=== PATIENT | male | born 1960 | race Caucasian/White ===

== ENCOUNTER 2018-03-04 15:45 | Inpatient (IN) | payer MEDICAID ==
[~2018-03-04] VITALS: Ht 172.7 cm; Wt 102.5 kg
[2018-03-04] MEDS ORDERED: Albuterol/Ipratropium 3ml neb HHN ONE (16:00)
[2018-03-04] MEDS ORDERED: DOCUSATE SODIU100 M2 ORAL (16:09)
[2018-03-04] MEDS ORDERED: QVAR7.3 GM INH (16:09)
[2018-03-04] MEDS ORDERED: MOM30 ML ORAL (16:09)
[2018-03-04] MEDS ORDERED: VITAMIN C500 M1 ORAL (16:09)
[2018-03-04] MEDS ORDERED: ALUM-MAG HYDRO360 ML PO (16:09)
[2018-03-04] MEDS ORDERED: ASPIRIN81 M3 PO (16:09)
[2018-03-04] MEDS ORDERED: KLONOPIN1 MG ORAL (16:09)
[2018-03-04] MEDS ORDERED: ALBUTEROL2.5 MG/3 M INH (16:09)
[2018-03-04] MEDS ORDERED: FOLIC ACID1 M1 PO (16:09)
[2018-03-04] MEDS ORDERED: MULTIVITAMINS1 EAC8 ORAL (16:09)
[2018-03-04] MEDS ORDERED: TYLENOL EXTRA500 MG ORAL (16:09)
[2018-03-04] MEDS ORDERED: CRANBERRY450 M3 PO (16:09)
[2018-03-04] MEDS ORDERED: LEVETIRACETAM500 MG ORAL (16:09)
[2018-03-04] MEDS ORDERED: [UNRECOGNIZED DRUG - OTHER] (16:09)
[2018-03-04] MEDS ORDERED: BISACODYL10 M1 RC (16:09)
[2018-03-04] MEDS ORDERED: Solu-MEDROL 125mg Inj IVP ONE (16:15)
--- NOTE | 2018-03-04 16:43 | Diagnostic Imaging Report ---
EXAM: XR Chest, 1 View CLINICAL HISTORY: SOB TECHNIQUE: Frontal view of the chest. COMPARISON: No relevant prior studies available. FINDINGS: Limitations: Limited due to hypoventilation. Lungs: Possible mild pulmonary vascular congestion, versus hypoventilation. No definite focal consolidation. Pleural space: Unremarkable. No pneumothorax. Heart: Unremarkable. No cardiomegaly. Mediastinum: Unremarkable. Bones/joints: Unremarkable. IMPRESSION: 1. Limited due to hypoventilation. 2. Possible mild pulmonary vascular congestion, versus hypoventilation. No definite focal consolidation.
[2018-03-04 17:00] VITALS: BP 119/79
[2018-03-04 17:24] LABS: APPEARANCE,URINE SLIGHTLY CLOUDY; BILIRUBIN, URINE NEGATIVE (NEGATIVE); COLOR,URINE PALE YELLOW; GLUCOSE, URINE (UA) NEGATIVE (NEGATIVE); KETONES,URINE NEGATIVE (NEGATIVE); LEUKOCYTE ESTERASE ,URINE 2+ (NEGATIVE); NITRITE,URINE POSITIVE (NEGATIVE); PH,URINE 6 (4.5-8.0); PROTEIN,URINE 2+ (NEGATIVE); UROBILINOGEN,URINE NORMAL MG/DL (0.0-1.0)
[2018-03-04 17:27] LABS: HEMATOCRIT 48.7 % (42.0-52.0); MEAN CORPUSCULAR VOLUME 85 FL (80-99); PLATELET COUNT 252 K/UL (150-450); RED BLOOD COUNT 5.71 M/UL (4.70-6.10); RED CELL DISTRIBUTION WIDTH 11.4 % (11.6-14.8); WHITE BLOOD COUNT 15.9 K/UL (4.8-10.8)
[2018-03-04 17:50] LABS: ANION GAP 10 mmol/L (5-15); BLOOD UREA NITROGEN 11 mg/dL (7-18); CALCIUM 9.1 MG/DL (8.5-10.1); CARBON DIOXIDE 24 MMOL/L (21-32); CHLORIDE 102 MMOL/L (98-107); CREATININE 0.9 MG/DL (0.55-1.30); POTASSIUM 3.4 MMOL/L (3.5-5.1); SODIUM 136 MMOL/L (136-145)
[2018-03-04 18:03] LABS: ALANINE AMINOTRANSFERASE 25 U/L (12-78); ALBUMIN 3.7 G/DL (3.4-5.0); ALBUMIN/GLOBULIN RATIO 0.9 (1.0-2.7); ALKALINE PHOSPHATASE 108 U/L (46-116); ASPARTATE AMINO TRANSFERASE 23 U/L (15-37); BILIRUBIN,TOTAL 1.1 MG/DL (0.2-1.0); CKMB 1.7 NG/ML (0.0-3.6); CREATINE KINASE 139 U/L (26-308)
[2018-03-04 18:08] LABS: BILIRUBIN,DIRECT 0.2 MG/DL (0.0-0.3)
[2018-03-04] MEDS ORDERED: Ampicillin/Sulbactam Sod 3 GM in NS 110 ML IVPB ONE (18:30)
[2018-03-04 19:00] VITALS: BP 122/80
[2018-03-04 19:35] VITALS: BP 123/84
--- NOTE | 2018-03-04 19:52 | Emergency Room Report ---
History of Present Illness General Chief Complaint: Dyspnea/Respdistress Source: Patient, Medical Record Present Illness HPI Patient's 57-year-old male presented after increased.difficulty breathing. The patient was noted to have prior history of COPD. The patient had been having increased difficulty breathing. The patient had the been at his board- and-care and noticed to have increased respiratory distress. Patient was given breathing treatments by EMS. Patient previously been a smoker. Allergies: Coded Allergies: No Known Allergies (Unverified , 12/03/14) Patient History Past Medical History: see triage record Reviewed Nursing Documentation: PMH: Agreed; PSxH: Agreed Nursing Documentation-PMH Hx Gastrointestinal Problems: Yes - GT Hx Seizures: Yes Review of Systems All Other Systems: limited - by poor historian Physical Exam Vital Signs Date Time Temp Pulse Resp B/P (MAP) Pulse Ox O2 Delivery O2 Flow Rate FiO2 03/04/18 15:38 97.9 62 20 139/101 100 Simple Mask 15.0 97.9 Sp02 EP Interpretation: reviewed, normal General Appearance: no apparent distress, alert, obese, Chronically Ill Head: atraumatic ENT: normal ENT inspection, hearing grossly normal, normal voice Neck: normal inspection, full range of motion, supple, no bony tend Respiratory: no retraction, wheezing, other - tachypneic Cardiovascular #1: regular rate, rhythm, no edema Gastrointestinal: normal inspection, normal bowel sounds, non tender, soft, no guarding, no hernia Genitourinary: no CVA tenderness Musculoskeletal: normal inspection, back normal, normal range of motion Neurologic: normal inspection, alert, oriented x3, responsive, barrel filler head III-XII nml as tested, speech normal Psychiatric: normal inspection, judgement/insight normal, mood/affect normal Skin: normal inspection, normal color, no rash Medical Decision Making Diagnostic Impression: Primary Impression: COPD exacerbation Additional Impressions: UTI (urinary tract infection) Lactic acid acidosis ER Course Patient presented for shortness of breath. Differential included but was not limited to anemia, pneumonia, pneumothorax, myocardial infarction, pericardial effusion, congestive heart failure, acidosis. Because of complexity of patient' s case laboratory testing and imaging studies were ordered. EKG interpreted by me showed sinu ST changes. Patient had l ow-voltage Chest x-ray read by radiology showed hypoventilation as well as pulmonary vascular congestion versus hypoventilation without definite consolidation.The patient started IV fluids as well as IV antibiotics. He is given breathing treatments with some improvement in his breathing. Patient noted have elevated initially elevated lactic acid level which was worsened on repeat testing. Patient was discussed with Dr. Alfaro for Dr. Suarez for inpatient management. Labs Test 03/04/18 16:36 White Blood Count 15.9 K/UL (4.8-10.8) Red Blood Count 5.71 M/UL (4.70-6.10) Hemoglobin 17.0 G/DL (14.2-18.0) Hematocrit 48.7 % (42.0-52.0) Mean Corpuscular Volume 85 FL (80-99) Mean Corpuscular Hemoglobin 29.7 PG (27.0-31.0) Mean Corpuscular Hemoglobin Concent 34.8 G/DL (32.0-36.0) Red Cell Distribution Width 11.4 % (11.6-14.8) Platelet Count 252 K/UL (150-450) Mean Platelet Volume 5.8 FL (6.5-10.1) Neutrophils (%) (Auto) % (45.0-75.0) Lymphocytes (%) (Auto) % (20.0-45.0) Monocytes (%) (Auto) % (1.0-10.0) Eosinophils (%) (Auto) % (0.0-3.0) Basophils (%) (Auto) % (0.0-2.0) Differential Total Cells Counted 100 Neutrophils % (Manual) 91 % (45-75) Lymphocytes % (Manual) 6 % (20-45) Monocytes % (Manual) 3 % (1-10) Eosinophils % (Manual) 0 % (0-3) Basophils % (Manual) 0 % (0-2) Band Neutrophils 0 % (0-8) Platelet Estimate Adequate Platelet Morphology Normal Red Blood Cell Morphology Normal Urine Color Pale yellow Urine Appearance Slightly cloudy Urine pH 6 (4.5-8.0) Urine Specific [place] 1.010 (1.005-1.035) Urine Protein 2+ (NEGATIVE) Urine Glucose (UA) Negative (NEGATIVE) Urine Ketones Negative (NEGATIVE) Urine Blood 5+ (NEGATIVE) Urine Nitrite Positive (NEGATIVE) Urine Bilirubin Negative (NEGATIVE) Urine Urobilinogen Normal MG/DL (0.0-1.0) Urine Leukocyte Esterase 2+ (NEGATIVE) Urine RBC 60-80 /HPF (0 - 0) Urine WBC 15-20 /HPF (0 - 0) Urine Squamous Epithelial Cells Few /LPF (NONE/OCC) Urine Bacteria Many /HPF (NONE) Sodium Level 136 MMOL/L (136-145) Potassium Level 3.4 MMOL/L (3.5-5.1) Chloride Level 102 MMOL/L (98-107) Carbon Dioxide Level 24 MMOL/L (21-32) Anion Gap 10 mmol/L (5-15) Blood Urea Nitrogen 11 mg/dL (7-18) Creatinine 0.9 MG/DL (0.55-1.30) Estimat Glomerular Filtration Rate > 60 mL/min (>60) Glucose Level 113 MG/DL (74-106) Lactic Acid Level 2.50 mmol/L (0.4-2.0) Calcium Level 9.1 MG/DL (8.5-10.1) Total Bilirubin 1.1 MG/DL (0.2-1.0) Direct Bilirubin 0.2 MG/DL (0.0-0.3) Aspartate Amino Transf (AST/SGOT) 23 U/L (15-37) Alanine Aminotransferase (ALT/SGPT) 25 U/L (12-78) Alkaline Phosphatase 108 U/L (46-116) Total Creatine Kinase 139 U/L (26-308) Creatine Kinase MB 1.7 NG/ML (0.0-3.6) Creatine Kinase MB Relative Index 1.2 Troponin I 0.000 ng/mL (0.000-0.056) Total Protein 8.0 G/DL (6.4-8.2) Albumin 3.7 G/DL (3.4-5.0) Globulin 4.3 g/dL Albumin/Globulin Ratio 0.9 (1.0-2.7) EKG Diagnostic Results Rate: tachycardiac Rhythm: NSR ST Segments: no acute changes Last Vital Signs Date Time Temp Pulse Resp B/P (MAP) Pulse Ox O2 Delivery O2 Flow Rate FiO2 03/04/18 19:00 110 21 122/80 96 Room Air 03/04/18 17:00 15.0 03/04/18 15:38 97.9 97.9 Status: unchanged Disposition: ADMITTED INPATIENT Condition: Serious Referrals: NON PHYSICIAN (PCP) Manjit Barton MD Mar 04, 2018 19:52
[2018-03-04] MEDS ORDERED: LORazepam Inj 2mg/ml 1ml IV ONE (21:15)
[2018-03-04 21:31] VITALS: BP 113/91
[2018-03-04 21:45] VITALS: BP 122/68
[2018-03-05] VITALS: BP 115/60
[2018-03-05] MEDS ORDERED: Albuterol/Ipratropium 3ml neb HHN PRN ×2 (00:15→16:28)
[2018-03-05] MEDS ORDERED: Azithromycin 500 MG in D5W 275 ML IV SCH (01:00)
[2018-03-05] MEDS ORDERED: Acetaminophen 500mg (ES) tab ORAL PRN ×2 (01:00→16:27)
[2018-03-05] MEDS ORDERED: Albuterol ud Inhalation HHN PRN ×2 (01:00→17:00)
[2018-03-05] MEDS ORDERED: Mylanta II UD 30ml ORAL PRN ×2 (01:00→16:35)
[2018-03-05] MEDS ORDERED: LORazepam Inj 2mg/ml 1ml IV PRN ×2 (01:15→16:29)
[2018-03-05] MEDS ORDERED: LORazepam 1mg tab ORAL PRN (03:15)
[2018-03-05 04:00] VITALS: BP 107/74
[2018-03-05 05:43] LABS: HEMATOCRIT 43.6 % (42.0-52.0); MEAN CORPUSCULAR VOLUME 85 FL (80-99); PLATELET COUNT 258 K/UL (150-450); RED BLOOD COUNT 5.15 M/UL (4.70-6.10); RED CELL DISTRIBUTION WIDTH 11.1 % (11.6-14.8); WHITE BLOOD COUNT 20.8 K/UL (4.8-10.8)
[2018-03-05 06:15] LABS: ANION GAP 15 mmol/L (5-15); BLOOD UREA NITROGEN 13 mg/dL (7-18); CALCIUM 8.9 MG/DL (8.5-10.1); CARBON DIOXIDE 20 MMOL/L (21-32); CHLORIDE 102 MMOL/L (98-107); CREATININE 1.1 MG/DL (0.55-1.30); POTASSIUM 3.7 MMOL/L (3.5-5.1); SODIUM 137 MMOL/L (136-145)
[2018-03-05 08:00] VITALS: BP 99/77
[2018-03-05] MEDS ORDERED: Ascorbic Acid 500mg tab ORAL SCH (09:00)
[2018-03-05] MEDS ORDERED: Docusate 100mg cap ORAL SCH (09:00)
[2018-03-05] MEDS ORDERED: Milk of Magnesia 30ml Ud ORAL SCH (09:00)
[2018-03-05] MEDS ORDERED: Aspirin Baby 81mg ORAL SCH (09:00)
[2018-03-05] MEDS ORDERED: cefTRIAXone 1 GM in D5W 55 ML IVPB SCH (09:00)
[2018-03-05 12:00] VITALS: BP 111/63
--- NOTE | 2018-03-05 13:17 | Consultation ---
Consult Note Assessment/Plan DICT # [id number] Marko Juares MD Mar 05, 2018 13:17
[2018-03-05] MEDS ORDERED: Solu-MEDROL 40mg Inj IVP SCH (14:00)
--- NOTE | 2018-03-05 14:50 | History and Physical ---
History of Present Illness General Date patient seen: Mar 05, 2018 Time patient seen: 12:00 Reason for Hospitalization: Dyspnea/Respdistress Present Illness HPI 57 year old man with history of HTN, GERD, COPD, TBI, epilepsy, schizophrenia, depression, anxiety who was sent in from a care facility with reported respiratory distress and to be evaluated fro possible CPD exacerbation. Patient is a poor historian due to history of TBI, denies chest pain, dyspnea. Mild cough with sputum production. Here he was not noted to have hypoxemia. Referred for medical admission for COPD exacerbation, treated with systemic steroids and IV antibiotics. Allergies: Coded Allergies: No Known Allergies (Unverified , 12/03/14) Medication History Scheduled Ascorbic Acid* (Vitamin C*), 500 MG ORAL DAILY, (Reported) Clonazepam* (Klonopin*), 1 MG ORAL BID, (Reported) Docusate Sodium (Docusate Sodium), 100 MG ORAL TWICE A DAY, (Reported) Levetiracetam* (Levetiracetam*), 500 MG ORAL TWICE A DAY, (Reported) Magnesium Hydroxide (Milk of Magnesia), 30 ML ORAL DAILY, (Reported) Multivitamin With Minerals (Multivitamins With Minerals*), 1 TAB ORAL DAILY, ( Reported) Scheduled PRN Acetaminophen* (Tylenol Extra Strength*), 500 MG ORAL Q6H PRN for Mild Pain/ Temp > 100.5, (Reported) Albuterol Sulfate* (Albuterol Sulfate Hhn*), 3 ML INH Q4H PRN for Shortness of Breath, (Reported) Miscellaneous Medications Aspirin (Aspirin), 81 MG PO, (Reported) Bisacodyl (Bisacodyl), 10 MG RC, (Reported) Cranberry Fruit Concentrate (Cranberry), 450 MG PO, (Reported) Folic Acid (Folic Acid), 1 MG PO, (Reported) Mag Hydrox/Al Hydrox/Simeth (Alum-Mag Hydroxide-Simeth Liq), 30 ML PO, (Reported ) [fleet oil ], (Reported) Discontinued Medications Beclomethasone Dipropionate 40MCG Oral Inh (Qvar 40*), 2 PUFFS INH TWICE A DAY, (Reported) Discontinued Reason: Therapy completed Patient History Limited by: medical condition History Provided By: Medical Record Healthcare decision maker Resuscitation status Advanced Directive on File Family History Family History: Unable to obtain due to impaired cognition Social History Social History: (1) Former cigarette smoker Review of Systems Constitutional: Denies: fever Eye: Denies: blurred vision ENT: Denies: throat pain Respiratory: Denies: shortness of breath, wheezing Cardiovascular: Reports: chest pain Gastrointestinal: Reports: abdominal pain Musculoskeletal: Reports: back pain Skin: Reports: rash Neurological: Reports: headache ROS Narrative Limited due to history of TBI Physical Exam General Appearance: alert HEENT: anicteric Neck: non-tender, supple, normal inspection Respiratory/Chest: chest wall non-tender, lungs clear, normal breath sounds Cardiovascular/Chest: normal peripheral pulses, normal rate, regular rhythm Abdomen: normal bowel sounds, non tender Extremities: normal inspection, no edema, no cyanosis Skin Exam: normal pigmentation Neurologic: no motor/sensory deficits, alert, responsive Last 24 Hour Vital Signs Date Time Temp Pulse Resp B/P (MAP) Pulse Ox O2 Delivery O2 Flow Rate FiO2 03/05/18 12:00 Room Air 03/05/18 12:00 62 03/05/18 12:00 97.5 95 23 111/63 (79) 95 97.5 03/05/18 09:31 74 03/05/18 08:00 Room Air 03/05/18 08:00 96.1 92 24 99/77 (84) 96 96.1 03/05/18 04:23 82 22 100 Room Air 21 03/05/18 04:10 70 24 97 Room Air 21 03/05/18 04:00 73 03/05/18 04:00 Room Air 03/05/18 04:00 98.3 77 22 107/74 (85) 93 98.3 03/05/18 00:00 Room Air 03/05/18 00:00 80 03/05/18 00:00 98.0 69 22 115/60 (78) 93 98.0 03/04/18 22:27 Room Air 03/04/18 21:45 98.2 63 24 122/68 (86) 95 98.2 03/04/18 21:35 98.9 95 19 113/61 95 Room Air 03/04/18 21:31 98.9 95 16 113/91 95 Room Air 15.0 98.9 03/04/18 19:35 98.9 117 16 123/84 95 Room Air 15.0 98.9 03/04/18 19:00 110 21 122/80 96 Room Air 03/04/18 17:00 100 26 119/79 100 Non-Rebreather 15.0 03/04/18 16:43 120 22 100 Non-Rebreather 10.0 03/04/18 16:30 95 24 Non-Rebreather 10.0 03/04/18 16:28 95 24 99 Non-Rebreather 10.0 03/04/18 15:53 Non-Rebreather 15.0 03/04/18 15:38 97.9 62 20 139/101 100 Simple Mask 15.0 97.9 Intake and Output 03/04/18 03/05/18 19:00 07:00 Output Total 80 ml 500 ml Balance -80 ml -500 ml Output Urine Total 80 ml 500 ml Laboratory Tests Test 03/04/18 16:36 03/04/18 18:50 03/04/18 19:20 03/05/18 04:20 White Blood Count 15.9 K/UL (4.8-10.8) H 20.8 K/UL (4.8-10.8) H Red Blood Count 5.71 M/UL (4.70-6.10) 5.15 M/UL (4.70-6.10) Hemoglobin 17.0 G/DL (14.2-18.0) 15.0 G/DL (14.2-18.0) Hematocrit 48.7 % (42.0-52.0) 43.6 % (42.0-52.0) Mean Corpuscular Volume 85 FL (80-99) 85 FL (80-99) Mean Corpuscular Hemoglobin 29.7 PG (27.0-31.0) 29.2 PG (27.0-31.0) Mean Corpuscular Hemoglobin Concent 34.8 G/DL (32.0-36.0) 34.5 G/DL (32.0-36.0) Red Cell Distribution Width 11.4 % (11.6-14.8) L 11.1 % (11.6-14.8) L Platelet Count 252 K/UL (150-450) 258 K/UL (150-450) Mean Platelet Volume 5.8 FL (6.5-10.1) L 6.5 FL (6.5-10.1) Neutrophils (%) (Auto) % (45.0-75.0) % (45.0-75.0) Lymphocytes (%) (Auto) % (20.0-45.0) % (20.0-45.0) Monocytes (%) (Auto) % (1.0-10.0) % (1.0-10.0) Eosinophils (%) (Auto) % (0.0-3.0) % (0.0-3.0) Basophils (%) (Auto) % (0.0-2.0) % (0.0-2.0) Differential Total Cells Counted 100 100 Neutrophils % (Manual) 91 % (45-75) H 92 % (45-75) H Lymphocytes % (Manual) 6 % (20-45) L 2 % (20-45) L Monocytes % (Manual) 3 % (1-10) 3 % (1-10) Eosinophils % (Manual) 0 % (0-3) 1 % (0-3) Basophils % (Manual) 0 % (0-2) 0 % (0-2) Band Neutrophils 0 % (0-8) 2 % (0-8) Platelet Estimate Adequate Adequate Platelet Morphology Normal Normal Red Blood Cell Morphology Normal Normal Urine Color Pale yellow Urine Appearance Slightly cloudy Urine pH 6 (4.5-8.0) Urine Specific [place] 1.010 (1.005-1.035) Urine Protein 2+ (NEGATIVE) H Urine Glucose (UA) Negative (NEGATIVE) Urine Ketones Negative (NEGATIVE) Urine Blood 5+ (NEGATIVE) H Urine Nitrite Positive (NEGATIVE) H Urine Bilirubin Negative (NEGATIVE) Urine Urobilinogen Normal MG/DL (0.0-1.0) Urine Leukocyte Esterase 2+ (NEGATIVE) H Urine RBC 60-80 /HPF (0 - 0) H Urine WBC 15-20 /HPF (0 - 0) H Urine Squamous Epithelial Cells Few /LPF (NONE/OCC) Urine Bacteria Many /HPF (NONE) H Sodium Level 136 MMOL/L (136-145) 137 MMOL/L (136-145) Potassium Level 3.4 MMOL/L (3.5-5.1) L 3.7 MMOL/L (3.5-5.1) Chloride Level 102 MMOL/L (98-107) 102 MMOL/L (98-107) Carbon Dioxide Level 24 MMOL/L (21-32) 20 MMOL/L (21-32) L Anion Gap 10 mmol/L (5-15) 15 mmol/L (5-15) Blood Urea Nitrogen 11 mg/dL (7-18) 13 mg/dL (7-18) Creatinine 0.9 MG/DL (0.55-1.30) 1.1 MG/DL (0.55-1.30) Estimat Glomerular Filtration Rate > 60 mL/min (>60) > 60 mL/min (>60) Glucose Level 113 MG/DL (74-106) H 228 MG/DL (74-106) #H Lactic Acid Level 2.50 mmol/L (0.4-2.0) H 3.70 mmol/L (0.66-2.22) H Calcium Level 9.1 MG/DL (8.5-10.1) 8.9 MG/DL (8.5-10.1) Total Bilirubin 1.1 MG/DL (0.2-1.0) H Direct Bilirubin 0.2 MG/DL (0.0-0.3) Aspartate Amino Transf (AST/SGOT) 23 U/L (15-37) Alanine Aminotransferase (ALT/SGPT) 25 U/L (12-78) Alkaline Phosphatase 108 U/L (46-116) Total Creatine Kinase 139 U/L (26-308) Creatine Kinase MB 1.7 NG/ML (0.0-3.6) Creatine Kinase MB Relative Index 1.2 Troponin I 0.000 ng/mL (0.000-0.056) Total Protein 8.0 G/DL (6.4-8.2) Albumin 3.7 G/DL (3.4-5.0) Globulin 4.3 g/dL Albumin/Globulin Ratio 0.9 (1.0-2.7) L Arterial Blood pH 7.453 (7.350-7.450) Arterial Blood Partial Pressure CO2 24.1 mmHg (35.0-45.0) *L Arterial Blood Partial Pressure O2 99.2 mmHg (75.0-100.0) Arterial Blood HCO3 16.5 mmol/L (22.0-26.0) L Arterial Blood Oxygen Saturation 97.9 % (92.0-98.0) Arterial Blood Base Excess -5.2 Sherif Test Positive Microbiology Date/Time Source Procedure Growth Status 03/04/18 16:36 Urine,Clean Catch Urine Culture - Preliminary Gram Negative Bacillus 1 Resulted Height (Feet): 5 Height (Inches): 8.00 Weight (Pounds): 216 Medications Current Medications Medications (Trade) Dose Ordered Sig/Jeramy Route PRN Reason Start Time Stop Time Status Last Admin Dose Admin Acetaminophen (Tylenol) 500 mg Q6H PRN ORAL Mild Pain/Temp > 100.5 03/05/18 01:00 04/04/18 00:59 Al Hydroxide/Mg Hydroxide (Mylanta II) 30 ml NEEDED PRN ORAL Constipation 03/05/18 01:00 04/04/18 00:59 Albuterol Sulfate (Proventil) 2.5 mg Q4H PRN HHN Shortness of Breath 03/05/18 01:00 03/10/18 00:59 Albuterol/ Ipratropium (Albuterol/ Ipratropium) 3 ml Q4H PRN HHN Shortness of Breath 03/05/18 00:15 03/10/18 00:14 03/05/18 04:10 Ascorbic Acid (Vitamin C) 500 mg DAILY ORAL 03/05/18 09:00 04/04/18 08:59 03/05/18 09:29 Aspirin (ASA) 81 mg DAILY ORAL 03/05/18 09:00 04/04/18 08:59 03/05/18 09:28 Azithromycin 500 mg/Dextrose 275 ml @ 275 mls/hr Q24HRS IV 03/05/18 01:00 03/11/18 01:59 03/05/18 01:52 Bisacodyl (Dulcolax) 10 mg NEEDED PRN RECTAL Constipation 03/05/18 01:00 04/04/18 00:59 Ceftriaxone Sodium 1 gm/ Dextrose 55 ml @ 110 mls/hr Q24H IVPB 03/05/18 09:00 03/12/18 08:59 03/05/18 10:44 Clonazepam (KlonoPIN) 1 mg BID ORAL 03/05/18 09:00 03/12/18 08:59 03/05/18 09:29 Docusate Sodium (Colace) 100 mg TWICE A DAY ORAL 03/05/18 09:00 04/04/18 08:59 03/05/18 09:28 Folic Acid (Folate) 1 mg DAILY ORAL 03/05/18 09:00 04/04/18 08:59 03/05/18 09:28 Levetiracetam (Keppra) 500 mg TWICE A DAY ORAL 03/05/18 09:00 04/04/18 08:59 03/05/18 09:29 Lorazepam (Ativan 2mg/ml 1ml) 1 mg EVERY 6 HOURS PRN IV For Anxiety 03/05/18 01:15 03/12/18 01:14 03/05/18 01:52 Magnesium Hydroxide (Mom) 30 ml DAILY ORAL 03/05/18 09:00 04/04/18 08:59 Methylprednisolone Sodium Succinate (Solu-MEDROL) 40 mg EVERY 8 HOURS IVP 03/05/18 14:00 04/04/18 13:59 Assessment/Plan Assessment/Plan Respiratory distress, possible COPD exacerbation versus acute bronchitis versus aspiration. Admit to medical service, contiune Duonebs, IV antibiotic and Solu- Medrol. Continue supplemental oxygen via NC to maintain sat > 88%. Pulmonology consulted. history of TBI, epilepsy, continue Keppra history of paranoid schizophrenia, depression and anxiety, continue Klonopin history of hypertension, not on anti-hypertensives, will monitor blood pressure VTE PPx heparin sc Full Code Patient will require a hospitalization crossing 2 midnights in order to treat his acute respiratory condition and monitor cardiopulmonary status closely, high risk for acute respiratory failure given his poor overall condition. Ernesto Schuster MD Mar 05, 2018 14:50
[2018-03-05] MEDS ORDERED: Hydrocortisone 100mg Inj ONE (15:32)
--- NOTE | 2018-03-05 15:42 | Cardiology Report ---
APPROVED REPORT EKG Measurement Heart [id number] Sinus tachycardia Low voltage QRS Inferior infarct, age undetermined Possible Anterolateral infarct, age undetermined Abnormal ECG
--- NOTE | 2018-03-05 15:54 | Consultation ---
Consult Note Consult Note Hematology Consult DATE seen 03/05/18 JANETH MD: Ankush Reason for Hospitalization: Dyspnea/Respdistress RFC: Leukocytosis, worsened HPI 57 year old man with history of HTN, GERD, COPD, TBI, epilepsy, schizophrenia, depression, anxiety who was sent in from a care facility with reported respiratory distress and to be evaluated fro possible CPD exacerbation. Patient is a poor historian due to history of TBI, denies chest pain, dyspnea. Mild cough with sputum production. Here he was not noted to have hypoxemia. Referred for medical admission for COPD exacerbation, treated with systemic steroids and IV antibiotics. Heme was consulted for evaluation of leukocytosis. Allergies: Coded Allergies: No Known Allergies (Unverified , 12/03/14) Medication History Scheduled Ascorbic Acid* (Vitamin C*), 500 MG ORAL DAILY, (Reported) Clonazepam* (Klonopin*), 1 MG ORAL BID, (Reported) Docusate Sodium (Docusate Sodium), 100 MG ORAL TWICE A DAY, (Reported) Levetiracetam* (Levetiracetam*), 500 MG ORAL TWICE A DAY, (Reported) Magnesium Hydroxide (Milk of Magnesia), 30 ML ORAL DAILY, (Reported) Multivitamin With Minerals (Multivitamins With Minerals*), 1 TAB ORAL DAILY, ( Reported) Scheduled PRN Acetaminophen* (Tylenol Extra Strength*), 500 MG ORAL Q6H PRN for Mild Pain/ Temp > 100.5, (Reported) Albuterol Sulfate* (Albuterol Sulfate Hhn*), 3 ML INH Q4H PRN for Shortness of Breath, (Reported) Miscellaneous Medications Aspirin (Aspirin), 81 MG PO, (Reported) Bisacodyl (Bisacodyl), 10 MG RC, (Reported) Cranberry Fruit Concentrate (Cranberry), 450 MG PO, (Reported) Folic Acid (Folic Acid), 1 MG PO, (Reported) Mag Hydrox/Al Hydrox/Simeth (Alum-Mag Hydroxide-Simeth Liq), 30 ML PO, (Reported ) [fleet oil ], (Reported) Discontinued Medications Beclomethasone Dipropionate 40MCG Oral Inh (Qvar 40*), 2 PUFFS INH TWICE A DAY, (Reported) Discontinued Reason: Therapy completed Patient History Limited by: medical condition History Provided By: Medical Record Healthcare decision maker Resuscitation status Advanced Directive on File Family History Family History: Unable to obtain due to impaired cognition Social History Social History: (1) Former cigarette smoker Review of Systems Constitutional: Denies: fever Eye: Denies: blurred vision ENT: Denies: throat pain Respiratory: Denies: shortness of breath, wheezing Cardiovascular: Reports: chest pain Gastrointestinal: Reports: abdominal pain Musculoskeletal: Reports: back pain Skin: Reports: rash Neurological: Reports: headache ROS Narrative Limited due to history of TBI Physical Exam General Appearance: alert HEENT: anicteric Neck: non-tender, supple, normal inspection Respiratory/Chest: chest wall non-tender Cardiovascular/Chest: normal peripheral pulse Abdomen: normal bowel sounds, non tender Extremities: normal inspection, no edema, no cyanosis Skin Exam: normal pigmentation Neurologic: no motor/sensory deficits, alert, responsive Last 24 Hour Vital Signs Date Time Temp Pulse Resp B/P (MAP) Pulse Ox O2 Delivery O2 Flow Rate FiO2 03/05/18 12:00 Room Air 03/05/18 12:00 62 03/05/18 12:00 97.5 95 23 111/63 (79) 95 97.5 03/05/18 09:31 74 03/05/18 08:00 Room Air 03/05/18 08:00 96.1 92 24 99/77 (84) 96 96.1 03/05/18 04:23 82 22 100 Room Air 21 03/05/18 04:10 70 24 97 Room Air 21 03/05/18 04:00 73 03/05/18 04:00 Room Air 03/05/18 04:00 98.3 77 22 107/74 (85) 93 98.3 03/05/18 00:00 Room Air 03/05/18 00:00 80 03/05/18 00:00 98.0 69 22 115/60 (78) 93 98.0 03/04/18 22:27 Room Air 03/04/18 21:45 98.2 63 24 122/68 (86) 95 98.2 03/04/18 21:35 98.9 95 19 113/61 95 Room Air 03/04/18 21:31 98.9 95 16 113/91 95 Room Air 15.0 98.9 03/04/18 19:35 98.9 117 16 123/84 95 Room Air 15.0 98.9 03/04/18 19:00 110 21 122/80 96 Room Air 03/04/18 17:00 100 26 119/79 100 Non-Rebreather 15.0 03/04/18 16:43 120 22 100 Non-Rebreather 10.0 03/04/18 16:30 95 24 Non-Rebreather 10.0 03/04/18 16:28 95 24 99 Non-Rebreather 10.0 03/04/18 15:53 Non-Rebreather 15.0 03/04/18 15:38 97.9 62 20 139/101 100 Simple Mask 15.0 97.9 Intake and Output 03/04/18 03/05/18 19:00 07:00 Output Total 80 ml 500 ml Balance -80 ml -500 ml Output Urine Total 80 ml 500 ml Laboratory Tests Test 03/04/18 16:36 03/04/18 18:50 03/04/18 19:20 03/05/18 04:20 White Blood Count 15.9 K/UL (4.8-10.8) H 20.8 K/UL (4.8-10.8) H Red Blood Count 5.71 M/UL (4.70-6.10) 5.15 M/UL (4.70-6.10) Hemoglobin 17.0 G/DL (14.2-18.0) 15.0 G/DL (14.2-18.0) Hematocrit 48.7 % (42.0-52.0) 43.6 % (42.0-52.0) Mean Corpuscular Volume 85 FL (80-99) 85 FL (80-99) Mean Corpuscular Hemoglobin 29.7 PG (27.0-31.0) 29.2 PG (27.0-31.0) Mean Corpuscular Hemoglobin Concent 34.8 G/DL (32.0-36.0) 34.5 G/DL (32.0-36.0) Red Cell Distribution Width 11.4 % (11.6-14.8) L 11.1 % (11.6-14.8) L Platelet Count 252 K/UL (150-450) 258 K/UL (150-450) Mean Platelet Volume 5.8 FL (6.5-10.1) L 6.5 FL (6.5-10.1) Neutrophils (%) (Auto) % (45.0-75.0) % (45.0-75.0) Lymphocytes (%) (Auto) % (20.0-45.0) % (20.0-45.0) Monocytes (%) (Auto) % (1.0-10.0) % (1.0-10.0) Eosinophils (%) (Auto) % (0.0-3.0) % (0.0-3.0) Basophils (%) (Auto) % (0.0-2.0) % (0.0-2.0) Differential Total Cells Counted 100 100 Neutrophils % (Manual) 91 % (45-75) H 92 % (45-75) H Lymphocytes % (Manual) 6 % (20-45) L 2 % (20-45) L Monocytes % (Manual) 3 % (1-10) 3 % (1-10) Eosinophils % (Manual) 0 % (0-3) 1 % (0-3) Basophils % (Manual) 0 % (0-2) 0 % (0-2) Band Neutrophils 0 % (0-8) 2 % (0-8) Platelet Estimate Adequate Adequate Platelet Morphology Normal Normal Red Blood Cell Morphology Normal Normal Urine Color Pale yellow Urine Appearance Slightly cloudy Urine pH 6 (4.5-8.0) Urine Specific [place] 1.010 (1.005-1.035) Urine Protein 2+ (NEGATIVE) H Urine Glucose (UA) Negative (NEGATIVE) Urine Ketones Negative (NEGATIVE) Urine Blood 5+ (NEGATIVE) H Urine Nitrite Positive (NEGATIVE) H Urine Bilirubin Negative (NEGATIVE) Urine Urobilinogen Normal MG/DL (0.0-1.0) Urine Leukocyte Esterase 2+ (NEGATIVE) H Urine RBC 60-80 /HPF (0 - 0) H Urine WBC 15-20 /HPF (0 - 0) H Urine Squamous Epithelial Cells Few /LPF (NONE/OCC) Urine Bacteria Many /HPF (NONE) H Sodium Level 136 MMOL/L (136-145) 137 MMOL/L (136-145) Potassium Level 3.4 MMOL/L (3.5-5.1) L 3.7 MMOL/L (3.5-5.1) Chloride Level 102 MMOL/L (98-107) 102 MMOL/L (98-107) Carbon Dioxide Level 24 MMOL/L (21-32) 20 MMOL/L (21-32) L Anion Gap 10 mmol/L (5-15) 15 mmol/L (5-15) Blood Urea Nitrogen 11 mg/dL (7-18) 13 mg/dL (7-18) Creatinine 0.9 MG/DL (0.55-1.30) 1.1 MG/DL (0.55-1.30) Estimat Glomerular Filtration Rate > 60 mL/min (>60) > 60 mL/min (>60) Glucose Level 113 MG/DL (74-106) H 228 MG/DL (74-106) #H Lactic Acid Level 2.50 mmol/L (0.4-2.0) H 3.70 mmol/L (0.66-2.22) H Calcium Level 9.1 MG/DL (8.5-10.1) 8.9 MG/DL (8.5-10.1) Total Bilirubin 1.1 MG/DL (0.2-1.0) H Direct Bilirubin 0.2 MG/DL (0.0-0.3) Aspartate Amino Transf (AST/SGOT) 23 U/L (15-37) Alanine Aminotransferase (ALT/SGPT) 25 U/L (12-78) Alkaline Phosphatase 108 U/L (46-116) Total Creatine Kinase 139 U/L (26-308) Creatine Kinase MB 1.7 NG/ML (0.0-3.6) Creatine Kinase MB Relative Index 1.2 Troponin I 0.000 ng/mL (0.000-0.056) Total Protein 8.0 G/DL (6.4-8.2) Albumin 3.7 G/DL (3.4-5.0) Globulin 4.3 g/dL Albumin/Globulin Ratio 0.9 (1.0-2.7) L Arterial Blood pH 7.453 (7.350-7.450) Arterial Blood Partial Pressure CO2 24.1 mmHg (35.0-45.0) *L Arterial Blood Partial Pressure O2 99.2 mmHg (75.0-100.0) Arterial Blood HCO3 16.5 mmol/L (22.0-26.0) L Arterial Blood Oxygen Saturation 97.9 % (92.0-98.0) Arterial Blood Base Excess -5.2 Sherif Test Positive Microbiology Date/Time Source Procedure Growth Status 03/04/18 16:36 Urine,Clean Catch Urine Culture - Preliminary Gram Negative Bacillus 1 Resulted Height (Feet): 5 Height (Inches): 8.00 Weight (Pounds): 216 Medications Current Medications Medications (Trade) Dose Ordered Sig/Jeramy Route PRN Reason Start Time Stop Time Status Last Admin Dose Admin Acetaminophen (Tylenol) 500 mg Q6H PRN ORAL Mild Pain/Temp > 100.5 03/05/18 01:00 04/04/18 00:59 Al Hydroxide/Mg Hydroxide (Mylanta II) 30 ml NEEDED PRN ORAL Constipation 03/05/18 01:00 04/04/18 00:59 Albuterol Sulfate (Proventil) 2.5 mg Q4H PRN HHN Shortness of Breath 03/05/18 01:00 03/10/18 00:59 Albuterol/ Ipratropium (Albuterol/ Ipratropium) 3 ml Q4H PRN HHN Shortness of Breath 03/05/18 00:15 03/10/18 00:14 03/05/18 04:10 Ascorbic Acid (Vitamin C) 500 mg DAILY ORAL 03/05/18 09:00 04/04/18 08:59 03/05/18 09:29 Aspirin (ASA) 81 mg DAILY ORAL 03/05/18 09:00 04/04/18 08:59 03/05/18 09:28 Azithromycin 500 mg/Dextrose 275 ml @ 275 mls/hr Q24HRS IV 03/05/18 01:00 03/11/18 01:59 03/05/18 01:52 Bisacodyl (Dulcolax) 10 mg NEEDED PRN RECTAL Constipation 03/05/18 01:00 04/04/18 00:59 Ceftriaxone Sodium 1 gm/ Dextrose 55 ml @ 110 mls/hr Q24H IVPB 03/05/18 09:00 03/12/18 08:59 03/05/18 10:44 Clonazepam (KlonoPIN) 1 mg BID ORAL 03/05/18 09:00 03/12/18 08:59 03/05/18 09:29 Docusate Sodium (Colace) 100 mg TWICE A DAY ORAL 03/05/18 09:00 04/04/18 08:59 03/05/18 09:28 Folic Acid (Folate) 1 mg DAILY ORAL 03/05/18 09:00 04/04/18 08:59 03/05/18 09:28 Levetiracetam (Keppra) 500 mg TWICE A DAY ORAL 03/05/18 09:00 04/04/18 08:59 03/05/18 09:29 Lorazepam (Ativan 2mg/ml 1ml) 1 mg EVERY 6 HOURS PRN IV For Anxiety 03/05/18 01:15 03/12/18 01:14 03/05/18 01:52 Magnesium Hydroxide (Mom) 30 ml DAILY ORAL 03/05/18 09:00 04/04/18 08:59 Methylprednisolone Sodium Succinate (Solu-MEDROL) 40 mg EVERY 8 HOURS IVP 03/05/18 14:00 04/04/18 13:59 Assessment/Plan # Leukocytosis is likely related to underlying steirod use,, have started the patient on steriods and continue at this time, as per pulmonology team --> smear has been ordered as well as crp, esr --> unlikely leukemia, however review smear as ordered above # Respiratory distress, possible COPD exacerbation versus acute bronchitis versus aspiration. Admit to medical service, contiune Duonebs, IV antibiotic and Solu-Medrol. Continue supplemental oxygen via [place] to maintain sat > 88%. Pulmonology consulted. # TBI hx, epilepsy, continue Keppra # Paranoid schizophrenia, depression and anxiety, continue Klonopinh # Hypertension, not on anti-hypertensives, will monitor blood pressure Greatly appreciate consultation! Crow Mora MD Mar 05, 2018 15:54
[2018-03-05 16:00] VITALS: BP 108/71
--- NOTE | 2018-03-05 17:15 | Consultation ---
DATE OF CONSULTATION: 03/05/2018 PULMONARY CONSULTATION CONSULTING PHYSICIAN: Marko Juares M.D. REFERRING PHYSICIAN: . REASON FOR CONSULTATION: Respiratory distress. HISTORY OF PRESENT ILLNESS: The patient is a 57-year-old gentleman with some underlying psychiatric disorder/TBI, prior tracheostomy, gastrostomy, stated history of COPD, [facility] with shortness of breath. Since presenting to the ER, he has been afebrile. His vital signs are stable. He has been stable on room air. His ABG 7.45/24/99/16/97. White count was 15,000 on presentation, 20,000 now. Chemistry was significant for lactic acidosis, otherwise unremarkable. Urinalysis 5+ blood, positive nitrites, 2+ protein, 2+ leukocyte esterase. He has gram-negative bacillus UTI. Chest x-ray is unremarkable. The patient is in no respiratory distress. Denies any cough, shortness of breath, or other complaints. PAST MEDICAL HISTORY: 1. Tracheostomy of unknown etiology, now taken down. 2. Prior gastrostomy. 3. Some kind of underlying psychiatric disorder versus TBI. 4. Possible underlying seizure disorder based on his medications list, otherwise unknown. ALLERGIES: No known drug allergies. MEDICATIONS: Prior to admission medications reviewed. SOCIAL HISTORY: Prior tobacco. Denies drugs or alcohol. He is a [facility] resident. FAMILY HISTORY: Noncontributory and unobtainable. PHYSICAL EXAMINATION: VITAL SIGNS: Temperature 98.3, pulse 77, blood pressure 107/74, respiratory rate 22, and saturating 92% on room air. GENERAL: He is in no acute distress. Awake, alert, and oriented x2. There is evidence of brain injury. HEENT: Normocephalic and atraumatic. NECK: Supple. Tracheostomy scar is well healed. CHEST: Distant, but clear. HEART: Regular rate and rhythm. ABDOMEN: Soft, nontender, and nondistended. EXTREMITIES: No cyanosis, clubbing or edema. ANCILLARY DATA: Laboratories reviewed and chest x-ray normal. ASSESSMENT: The patient is a 57-year-old male with a stated history of COPD, prior tracheostomy, TBI versus other brain injury, now presenting with shortness of breath in the setting of urinary tract infection. He is oxygenating well with stable respiratory dynamics. PROBLEM LIST: 1. UTI with urosepsis. 2. Lactic acidosis. 3. Leukocytosis secondary to above. 4. COPD without evidence of exacerbation. 5. Prior tracheostomy. 6. History of gastrostomy tube. 7. Possible seizure disorder. TREATMENT PLAN: 1. Optimize pulmonary hygiene/mobilize as tolerated. 2. P.r.n. O2. 3. P.r.n. bronchodilators. 4. Monitor for signs of respiratory infection. 5. Continue antibiotics for UTI. 6. Stop Solu-Medrol. We will start prednisone 40 mg a day and taper rapidly unless the patient shows signs of worsening respiratory status. 7. Swallow evaluation. 8. DVT prophylaxis heparin subcutaneous. 9. We will obtain old records and review them. . , thank you for allowing me to assist in the care of your patient. If I may be of any assistance in the future, please do not hesitate to ask. Colin Jones JOB#: [id number] CC:
[2018-03-05] MEDS: Docusate 100mg cap ORAL SCH (17:26)
[2018-03-05 20:00] VITALS: BP 100/67
[2018-03-05] MEDS: Heparin 5000 units/ml inj SUBQ SCH (21:39)
[2018-03-05] MEDS: Solu-MEDROL 40mg Inj IVP SCH (21:39)
[2018-03-05] MEDS ORDERED: Heparin 5000 units/ml inj SUBQ SCH (22:00)
[2018-03-06] VITALS: BP 103/64
[2018-03-06] MEDS: Azithromycin 500 MG in D5W 275 ML IV SCH (00:55)
[2018-03-06 04:00] VITALS: BP 109/74
[2018-03-06] MEDS: Solu-MEDROL 40mg Inj IVP SCH (05:28)
[2018-03-06] MEDS: Heparin 5000 units/ml inj SUBQ SCH ×3 (05:28→21:37)
[2018-03-06 07:14] LABS: ANION GAP 10 mmol/L (5-15); BLOOD UREA NITROGEN 16 mg/dL (7-18); CALCIUM 8.8 MG/DL (8.5-10.1); CARBON DIOXIDE 25 MMOL/L (21-32); CHLORIDE 107 MMOL/L (98-107); POTASSIUM 3.9 MMOL/L (3.5-5.1); SODIUM 141 MMOL/L (136-145)
[2018-03-06 07:15] LABS: HEMATOCRIT 41.7 % (42.0-52.0); HEMOGLOBIN 14.4 G/DL (14.2-18.0); MEAN CORPUSCULAR VOLUME 84 FL (80-99); PLATELET COUNT 251 K/UL (150-450); RED BLOOD COUNT 4.98 M/UL (4.70-6.10); RED CELL DISTRIBUTION WIDTH 11.1 % (11.6-14.8)
[2018-03-06 08:00] VITALS: BP 112/58
[2018-03-06 08:01] LABS: WHITE BLOOD COUNT 25.1 K/UL (4.8-10.8)
[2018-03-06] MEDS: Milk of Magnesia 30ml Ud ORAL SCH (08:32)
[2018-03-06] MEDS: Docusate 100mg cap ORAL SCH ×2 (08:32→17:24)
[2018-03-06] MEDS: Aspirin Baby 81mg ORAL SCH (08:32)
[2018-03-06] MEDS: Ascorbic Acid 500mg tab ORAL SCH (08:32)
[2018-03-06] MEDS: cefTRIAXone 1 GM in D5W 55 ML IVPB SCH (10:39)
[2018-03-06 12:00] VITALS: BP 115/72
--- NOTE | 2018-03-06 13:42 | Pulmonology Progress Note ---
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 He is oxygenating well with stable respiratory dynamics. PROBLEM LIST: 1. UTI with urosepsis. 2. Lactic acidosis. 3. Leukocytosis secondary to above and steroid effect 4. COPD with resolving exacerbation. 5. 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 History of gastrostomy tube. 7. Possible seizure disorder. TREATMENT PLAN: 1. Optimize pulmonary hygiene/mobilize as tolerated. 2. P.r.n. O2. 3. P.r.n. bronchodilators. 4. Monitor for signs of respiratory infection. 5. Continue antibiotics for UTI. 6. Pred 60 and taper 7. Swallow evaluation noted, will need VSS 8. DVT prophylaxis heparin subcutaneous. 9. Awaiting old records. Subjective Allergies: Coded Allergies: No Known Allergies (Unverified , 12/03/14) Subjective AFVSS x SB, stable on RA Discharge from prior trach site + cough, + wheezing, no F/C + SOB Objective Last 24 Hour Vital Signs Date Time Temp Pulse Resp B/P (MAP) Pulse Ox O2 Delivery O2 Flow Rate FiO2 03/06/18 09:00 Room Air 03/06/18 08:00 57 03/06/18 08:00 97.9 58 20 112/58 (76) 95 97.9 03/06/18 04:00 49 03/06/18 04:00 97.5 51 18 109/74 (86) 92 97.5 03/06/18 00:00 98.0 54 18 103/64 (77) 95 98.0 03/06/18 00:00 53 03/05/18 21:00 Room Air 03/05/18 20:00 98.2 59 19 100/67 (78) 95 98.2 03/05/18 20:00 81 03/05/18 16:00 97.3 95 20 108/71 (83) 95 97.3 03/05/18 16:00 60 Intake and Output 03/05/18 03/06/18 19:00 07:00 Intake Total 830 ml 275 ml Output Total 251 ml 400 ml Balance 579 ml -125 ml Intake Oral 720 ml IV Total 110 ml 275 ml Output Urine Total 250 ml 400 ml Stool Total 1 ml # Bowel Movements 2 General Appearance: other - TBI HEENT: normocephalic, atraumatic, anicteric, mucous membranes moist, other - prior trach + mucoid d/c from site Respiratory/Chest: rhonchi, expiratory wheezing Cardiovascular: bradycardia Abdomen: normal bowel sounds, soft, non tender, no organomegaly, non distended , no mass Extremities: no cyanosis, no clubbing, no edema Microbiology Date/Time Source Procedure Growth Status 03/04/18 16:45 Blood Blood Culture - Preliminary NO GROWTH AFTER 24 HOURS Resulted 03/04/18 16:36 Blood Blood Culture - Preliminary NO GROWTH AFTER 24 HOURS Resulted 03/04/18 16:36 Nasal Nares MRSA Culture - Final NO METHICILLIN RESISTANT STAPH AUREUS... Complete 03/04/18 16:36 Urine,Clean Catch Urine Culture - Final Escherichia Coli Complete 03/04/18 16:36 Rectum VRE Culture - Final NO VANCOMYCIN RESISTANT ENTEROCOCCUS ... Complete Laboratory Tests 03/06/18 06:10: White Blood Count 25.1*H, Red Blood Count 4.98, Hemoglobin 14.4, Hematocrit 41.7L, Mean Corpuscular Volume 84, Mean Corpuscular Hemoglobin 28.9, Mean Corpuscular Hemoglobin Concent 34.5, Red Cell Distribution Width 11.1L, Platelet Count 251, Mean Platelet Volume 6.6, Neutrophils (%) (Auto) , Lymphocytes (%) (Auto) , Monocytes (%) (Auto) , Eosinophils (%) (Auto) , Basophils (%) (Auto) , Differential Total Cells Counted 100, Neutrophils % ( Manual) 95H, Lymphocytes % (Manual) 3L, Monocytes % (Manual) 2, Eosinophils % ( Manual) 0, Basophils % (Manual) 0, Band Neutrophils 0, Platelet Estimate Adequate, Platelet Morphology Normal, Red Blood Cell Morphology Normal, Sodium Level 141, Potassium Level 3.9, Chloride Level 107, Carbon Dioxide Level 25, Anion Gap 10, Blood Urea Nitrogen 16, Creatinine 1.0, Estimat Glomerular Filtration Rate > 60, Glucose Level 152H, Calcium Level 8.8 Current Medications Medications (Trade) Dose Ordered Sig/Jeramy Route PRN Reason Start Time Stop Time Status Last Admin Dose Admin Acetaminophen (Tylenol) 500 mg Q6H PRN ORAL Mild Pain/Temp > 100.5 03/05/18 16:27 04/04/18 16:26 Al Hydroxide/Mg Hydroxide (Mylanta II) 30 ml DAILYPRN PRN ORAL ABDOMINAL DISCOMFORT 03/05/18 16:35 04/04/18 16:34 Albuterol/ Ipratropium (Albuterol/ Ipratropium) 3 ml Q4H PRN HHN Shortness of Breath 03/05/18 16:28 03/10/18 16:27 Ascorbic Acid (Vitamin C) 500 mg DAILY ORAL 03/06/18 09:00 04/04/18 08:59 03/06/18 08:32 Aspirin (ASA) 81 mg DAILY ORAL 03/06/18 09:00 04/04/18 08:59 03/06/18 08:32 Azithromycin 500 mg/Dextrose 275 ml @ 275 mls/hr Q24HRS IV 03/06/18 01:00 03/11/18 01:59 03/06/18 00:55 Bisacodyl (Dulcolax) 10 mg DAILYPRN PRN RECTAL Constipation 03/05/18 16:35 04/04/18 16:34 Ceftriaxone Sodium 1 gm/ Dextrose 55 ml @ 110 mls/hr Q24H IVPB 03/06/18 11:00 03/12/18 10:59 03/06/18 10:39 Clonazepam (KlonoPIN) 1 mg BID ORAL 03/05/18 18:00 03/12/18 08:59 03/06/18 08:32 Docusate Sodium (Colace) 100 mg TWICE A DAY ORAL 03/05/18 18:00 04/04/18 08:59 03/06/18 08:32 Folic Acid (Folate) 1 mg DAILY ORAL 03/06/18 09:00 04/04/18 08:59 03/06/18 08:31 Heparin Sodium (Porcine) (Heparin 5000 units/ml) 5,000 units EVERY 8 HOURS SUBQ 03/05/18 22:00 04/04/18 21:59 03/06/18 13:33 Levetiracetam (Keppra) 500 mg TWICE A DAY ORAL 03/05/18 18:00 04/04/18 08:59 03/06/18 08:32 Lorazepam (Ativan 2mg/ml 1ml) 1 mg Q6H PRN IV For Anxiety 03/05/18 16:29 03/12/18 16:28 Magnesium Hydroxide (Mom) 30 ml DAILY ORAL 03/06/18 09:00 04/04/18 08:59 03/06/18 08:32 Prednisone (predniSONE) 50 mg DAILY ORAL 03/07/18 09:00 04/06/18 08:59 Marko Juares MD Mar 06, 2018 13:42
--- NOTE | 2018-03-06 14:06 | General Progress Note ---
Assessment/Plan Assessment/Plan 1)Mild COPD exacerbation, transition to prednisone. Continue inhaled bronchodilators and azithromycin. 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 coli UTI, on ceftriaxone 4)history of TBI, epilepsy, continue Keppra 5)history of paranoid schizophrenia, depression and anxiety, continue Klonopin 6)history of hypertension, not on anti-hypertensives, controlled. 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 No acute events overnight per nursing. Case discussed with Pulmonology at the bedside. Objective Last 24 Hour Vital Signs Date Time Temp Pulse Resp B/P (MAP) Pulse Ox O2 Delivery O2 Flow Rate FiO2 03/06/18 09:00 Room Air 03/06/18 08:00 57 03/06/18 08:00 97.9 58 20 112/58 (76) 95 97.9 03/06/18 04:00 49 03/06/18 04:00 97.5 51 18 109/74 (86) 92 97.5 03/06/18 00:00 98.0 54 18 103/64 (77) 95 98.0 03/06/18 00:00 53 03/05/18 21:00 Room Air 03/05/18 20:00 98.2 59 19 100/67 (78) 95 98.2 03/05/18 20:00 81 03/05/18 16:00 97.3 95 20 108/71 (83) 95 97.3 03/05/18 16:00 60 Intake and Output 03/05/18 03/06/18 19:00 07:00 Intake Total 830 ml 275 ml Output Total 251 ml 400 ml Balance 579 ml -125 ml Intake Oral 720 ml IV Total 110 ml 275 ml Output Urine Total 250 ml 400 ml Stool Total 1 ml # Bowel Movements 2 Laboratory Tests 03/06/18 06:10: White Blood Count 25.1*H, Red Blood Count 4.98, Hemoglobin 14.4, Hematocrit 41.7L, Mean Corpuscular Volume 84, Mean Corpuscular Hemoglobin 28.9, Mean Corpuscular Hemoglobin Concent 34.5, Red Cell Distribution Width 11.1L, Platelet Count 251, Mean Platelet Volume 6.6, Neutrophils (%) (Auto) , Lymphocytes (%) (Auto) , Monocytes (%) (Auto) , Eosinophils (%) (Auto) , Basophils (%) (Auto) , Differential Total Cells Counted 100, Neutrophils % ( Manual) 95H, Lymphocytes % (Manual) 3L, Monocytes % (Manual) 2, Eosinophils % ( Manual) 0, Basophils % (Manual) 0, Band Neutrophils 0, Platelet Estimate Adequate, Platelet Morphology Normal, Red Blood Cell Morphology Normal, Sodium Level 141, Potassium Level 3.9, Chloride Level 107, Carbon Dioxide Level 25, Anion Gap 10, Blood Urea Nitrogen 16, Creatinine 1.0, Estimat Glomerular Filtration Rate > 60, Glucose Level 152H, Calcium Level 8.8 Height (Feet): 5 Height (Inches): 8.00 Weight (Pounds): 216 Respiratory/Chest: lungs clear, no respiratory distress Abdomen: non tender, soft Edema: trace edema Ernesto Schuster MD Mar 06, 2018 14:06
[2018-03-06 16:00] VITALS: BP 113/68
[2018-03-06 20:00] VITALS: BP 95/59
[2018-03-07] VITALS: BP 116/74
[2018-03-07] MEDS: Azithromycin 500 MG in D5W 275 ML IV SCH (00:18)
--- NOTE | 2018-03-07 01:29 | Diagnostic Imaging Report ---
APPROVED REPORT CPT Code: 73960 Present Symptoms Comments: BILATERAL LEGS PAIN. BILATERAL: Imaging reveals a patent deep venous system bilaterally. There is no evidence of thrombus within the femoral, popliteal or tibial segments. The greater saphenous veins are also within normal limits. Doppler indicates normal spontaneous flow within these segments.
[2018-03-07 04:00] VITALS: BP 128/75
[2018-03-07] MEDS: Heparin 5000 units/ml inj SUBQ SCH ×3 (06:08→22:02)
[2018-03-07 07:20] LABS: BASOPHILS % (AUTO) 0.2 % (0.0-2.0); HEMOGLOBIN 14.9 G/DL (14.2-18.0); LYMPHOCYTES % (AUTO) 10.8 % (20.0-45.0); MEAN CORPUSCULAR VOLUME 85 FL (80-99); MONOCYTES % (AUTO) 4.6 % (1.0-10.0); NEUTROPHILS % (AUTO) 84.4 % (45.0-75.0); PLATELET COUNT 267 K/UL (150-450); RED BLOOD COUNT 5.18 M/UL (4.70-6.10); RED CELL DISTRIBUTION WIDTH 11.4 % (11.6-14.8); WHITE BLOOD COUNT 17.4 K/UL (4.8-10.8)
[2018-03-07 07:34] LABS: ANION GAP 7 mmol/L (5-15); BLOOD UREA NITROGEN 18 mg/dL (7-18); CALCIUM 8.8 MG/DL (8.5-10.1); CARBON DIOXIDE 28 MMOL/L (21-32); CHLORIDE 107 MMOL/L (98-107); CREATININE 0.9 MG/DL (0.55-1.30); POTASSIUM 3.6 MMOL/L (3.5-5.1); SODIUM 142 MMOL/L (136-145)
[2018-03-07 08:00] VITALS: BP 103/73
[2018-03-07] MEDS: Milk of Magnesia 30ml Ud ORAL SCH (08:32)
[2018-03-07] MEDS: Docusate 100mg cap ORAL SCH ×2 (08:32→18:07)
[2018-03-07] MEDS: Ascorbic Acid 500mg tab ORAL SCH (08:32)
[2018-03-07] MEDS: Aspirin Baby 81mg ORAL SCH (08:32)
--- NOTE | 2018-03-07 08:46 | Pulmonology Progress Note ---
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 He is oxygenating well with stable respiratory dynamics. PROBLEM LIST: 1. UTI with urosepsis. 2. Lactic acidosis. 3. Leukocytosis secondary to above and steroid effect 4. COPD with resolving exacerbation. 5. 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 History of gastrostomy tube. 7. Possible seizure disorder. TREATMENT PLAN: 1. Optimize pulmonary hygiene/mobilize as tolerated. 2. P.r.n. O2. 3. P.r.n. bronchodilators. 4. Monitor for signs of respiratory infection. 5. Continue antibiotics for UTI. 6. Pred 50 and taper 7. Swallow evaluation noted, F/U VSS 8. DVT prophylaxis heparin subcutaneous. 9. ENT eval today. Subjective Allergies: Coded Allergies: No Known Allergies (Unverified , 12/03/14) Subjective AFVSS x SB, now on 3L + cough, less wheezing, no F/C + SOB Objective Last 24 Hour Vital Signs Date Time Temp Pulse Resp B/P (MAP) Pulse Ox O2 Delivery O2 Flow Rate FiO2 03/07/18 08:00 97.7 49 20 103/73 (83) 97 97.7 03/07/18 04:44 40 03/07/18 04:00 97.3 54 20 128/75 (92) 95 97.3 03/07/18 00:00 98.8 56 20 116/74 (88) 95 98.8 03/06/18 23:43 54 03/06/18 23:24 60 20 100 Nasal Cannula 3.0 32 03/06/18 23:19 55 20 98 Nasal Cannula 3.0 32 03/06/18 21:00 Room Air 03/06/18 20:17 Nasal Cannula 2.0 28 03/06/18 20:17 95 Nasal Cannula 2.0 28 03/06/18 20:16 55 16 Nasal Cannula 2.0 28 03/06/18 20:00 98.1 61 20 95/59 (71) 97 98.1 03/06/18 19:42 52 03/06/18 16:00 97.7 63 20 113/68 (83) 95 97.7 03/06/18 16:00 55 03/06/18 12:00 97.9 52 20 115/72 (86) 96 97.9 03/06/18 12:00 58 03/06/18 09:47 65 16 Room Air 21 03/06/18 09:00 Room Air Intake and Output 03/06/18 03/07/18 19:00 07:00 Intake Total 360 ml 515.00 ml Output Total 900 ml Balance -540 ml 515.00 ml Intake Oral 360 ml 240 ml IV Total 275.00 ml Output Urine Total 900 ml General Appearance: cachetic HEENT: normocephalic, atraumatic, anicteric, mucous membranes moist Respiratory/Chest: chest wall non-tender, rhonchi Cardiovascular: normal peripheral pulses, normal rate, regular rhythm Abdomen: normal bowel sounds, soft, non tender, no organomegaly, non distended , no mass Extremities: no cyanosis, no clubbing, no edema Microbiology Date/Time Source Procedure Growth Status 03/04/18 16:45 Blood Blood Culture - Preliminary NO GROWTH AFTER 48 HOURS Resulted 03/04/18 16:36 Blood Blood Culture - Preliminary NO GROWTH AFTER 48 HOURS Resulted 03/04/18 16:36 Nasal Nares MRSA Culture - Final NO METHICILLIN RESISTANT STAPH AUREUS... Complete 03/04/18 16:36 Urine,Clean Catch Urine Culture - Final Escherichia Coli Complete 03/04/18 16:36 Rectum VRE Culture - Final NO VANCOMYCIN RESISTANT ENTEROCOCCUS ... Complete 03/04/18 16:36 Rectum - Final NO CARBAPENEM-RESISTANT ENTEROBACTERI... Complete Laboratory Tests 03/07/18 06:25: White Blood Count 17.4H, Red Blood Count 5.18, Hemoglobin 14.9, Hematocrit 44.0 , Mean Corpuscular Volume 85, Mean Corpuscular Hemoglobin 28.7, Mean Corpuscular Hemoglobin Concent 33.8, Red Cell Distribution Width 11.4L, Platelet Count 267, Mean Platelet Volume 6.5, Neutrophils (%) (Auto) 84.4H, Lymphocytes (%) (Auto) 10.8L, Monocytes (%) (Auto) 4.6, Eosinophils (%) (Auto) 0.0, Basophils (%) (Auto) 0.2, Sodium Level 142, Potassium Level 3.6, Chloride Level 107, Carbon Dioxide Level 28, Anion Gap 7, Blood Urea Nitrogen 18, Creatinine 0.9, Estimat Glomerular Filtration Rate > 60, Glucose Level 109H, Calcium Level 8.8 Current Medications Medications (Trade) Dose Ordered Sig/Jeramy Route PRN Reason Start Time Stop Time Status Last Admin Dose Admin Acetaminophen (Tylenol) 500 mg Q6H PRN ORAL Mild Pain/Temp > 100.5 03/05/18 16:27 04/04/18 16:26 Al Hydroxide/Mg Hydroxide (Mylanta II) 30 ml DAILYPRN PRN ORAL ABDOMINAL DISCOMFORT 03/05/18 16:35 04/04/18 16:34 Albuterol/ Ipratropium (Albuterol/ Ipratropium) 3 ml Q4H PRN HHN Shortness of Breath 03/05/18 16:28 03/10/18 16:27 03/06/18 23:23 Ascorbic Acid (Vitamin C) 500 mg DAILY ORAL 03/06/18 09:00 04/04/18 08:59 03/07/18 08:32 Aspirin (ASA) 81 mg DAILY ORAL 03/06/18 09:00 04/04/18 08:59 03/07/18 08:32 Azithromycin 500 mg/Dextrose 275 ml @ 275 mls/hr Q24HRS IV 03/06/18 01:00 03/11/18 01:59 03/07/18 00:18 Bisacodyl (Dulcolax) 10 mg DAILYPRN PRN RECTAL Constipation 03/05/18 16:35 04/04/18 16:34 Ceftriaxone Sodium 1 gm/ Dextrose 55 ml @ 110 mls/hr Q24H IVPB 03/06/18 11:00 03/12/18 10:59 03/06/18 10:39 Clonazepam (KlonoPIN) 1 mg BID ORAL 03/05/18 18:00 03/12/18 08:59 03/07/18 08:32 Docusate Sodium (Colace) 100 mg TWICE A DAY ORAL 03/05/18 18:00 04/04/18 08:59 03/07/18 08:32 Folic Acid (Folate) 1 mg DAILY ORAL 03/06/18 09:00 04/04/18 08:59 03/07/18 08:32 Heparin Sodium (Porcine) (Heparin 5000 units/ml) 5,000 units EVERY 8 HOURS SUBQ 03/05/18 22:00 04/04/18 21:59 03/07/18 06:08 Levetiracetam (Keppra) 500 mg TWICE A DAY ORAL 03/05/18 18:00 04/04/18 08:59 03/07/18 08:32 Lorazepam (Ativan 2mg/ml 1ml) 1 mg Q6H PRN IV For Anxiety 03/05/18 16:29 03/12/18 16:28 Magnesium Hydroxide (Mom) 30 ml DAILY ORAL 03/06/18 09:00 04/04/18 08:59 03/07/18 08:32 Prednisone (predniSONE) 50 mg DAILY ORAL 03/07/18 09:00 04/06/18 08:59 03/07/18 08:32 Marko Juares MD Mar 07, 2018 08:46
[2018-03-07] MEDS ORDERED: Varibar Thin Liquid powder 148gm MC PRN (09:30)
[2018-03-07] MEDS ORDERED: Barium EZ HD MC PRN (09:30)
[2018-03-07] MEDS ORDERED: Barium EZ Gas II granules MC PRN (09:30)
--- NOTE | 2018-03-07 09:30 | General Progress Note ---
Assessment/Plan Status: other - Possible cutaneous vs [id number] fistula. Assessment/Plan I have spoken with Radiologist and will order barium swallow to see if tracheo- esoph (T-E) fistula. I do not believe is mediastinal fistula-therefore Barium should be OK (Barium should not be used if suspected mediastinal fistula). If tracheal cutaneous fistula may-repair can be done under local with mild IV sedation. If T-E fistula, then much larger operation in OR under general anesthesia and lower success rate. PMD aware I have seen pt. Subjective Date patient seen: Mar 07, 2018 Time patient seen: 08:30 Constitutional: Reports: no symptoms HEENT: Reports: other - drainage from healed trach site Allergies: Coded Allergies: No Known Allergies (Unverified , 12/03/14) Objective Last 24 Hour Vital Signs Date Time Temp Pulse Resp B/P (MAP) Pulse Ox O2 Delivery O2 Flow Rate FiO2 03/07/18 08:00 97.7 49 20 103/73 (83) 97 97.7 03/07/18 04:44 40 03/07/18 04:00 97.3 54 20 128/75 (92) 95 97.3 03/07/18 00:00 98.8 56 20 116/74 (88) 95 98.8 03/06/18 23:43 54 03/06/18 23:24 60 20 100 Nasal Cannula 3.0 32 03/06/18 23:19 55 20 98 Nasal Cannula 3.0 32 03/06/18 21:00 Room Air 03/06/18 20:17 Nasal Cannula 2.0 28 03/06/18 20:17 95 Nasal Cannula 2.0 28 03/06/18 20:16 55 16 Nasal Cannula 2.0 28 03/06/18 20:00 98.1 61 20 95/59 (71) 97 98.1 03/06/18 19:42 52 03/06/18 16:00 97.7 63 20 113/68 (83) 95 97.7 03/06/18 16:00 55 03/06/18 12:00 97.9 52 20 115/72 (86) 96 97.9 03/06/18 12:00 58 03/06/18 09:47 65 16 Room Air 21 Intake and Output 03/06/18 03/07/18 19:00 07:00 Intake Total 360 ml 515.00 ml Output Total 900 ml Balance -540 ml 515.00 ml Intake Oral 360 ml 240 ml IV Total 275.00 ml Output Urine Total 900 ml Laboratory Tests 03/07/18 06:25: White Blood Count 17.4H, Red Blood Count 5.18, Hemoglobin 14.9, Hematocrit 44.0 , Mean Corpuscular Volume 85, Mean Corpuscular Hemoglobin 28.7, Mean Corpuscular Hemoglobin Concent 33.8, Red Cell Distribution Width 11.4L, Platelet Count 267, Mean Platelet Volume 6.5, Neutrophils (%) (Auto) 84.4H, Lymphocytes (%) (Auto) 10.8L, Monocytes (%) (Auto) 4.6, Eosinophils (%) (Auto) 0.0, Basophils (%) (Auto) 0.2, Sodium Level 142, Potassium Level 3.6, Chloride Level 107, Carbon Dioxide Level 28, Anion Gap 7, Blood Urea Nitrogen 18, Creatinine 0.9, Estimat Glomerular Filtration Rate > 60, Glucose Level 109H, Calcium Level 8.8 Height (Feet): 5 Height (Inches): 8.00 Weight (Pounds): 216 General Appearance: alert, mild distress EENT: other - small amout of white thick fluid over trach scar. Once wiped away , unable to recreate with swallowing. Alf Peralta MD Mar 07, 2018 09:30
--- NOTE | 2018-03-07 10:31 | General Progress Note ---
Assessment/Plan Assessment/Plan Assessment/Plan # Leukocytosis is likely related to underlying steirod use,, have started the patient on steriods and continue at this time, as per pulmonology team --> smear has been ordered as well as crp13 , esr 25 --> unlikely leukemia, however review smear as ordered above --> currently downtrending --> INR has been ordered # Respiratory distress, possible COPD exacerbation versus acute bronchitis versus aspiration. Admit to medical service, contiune Duonebs, IV antibiotic and Solu-Medrol. --> Continue supplemental oxygen via [place] to maintain sat > 88%. Pulmonology consulted. # TBI hx, epilepsy, continue Keppra # Paranoid schizophrenia, depression and anxiety, continue Klonopinh # Hypertension, not on anti-hypertensives, will monitor blood pressure # Possible cutaneous vs [id number] fistula. --> further eval with radiology Greatly appreciate consultation! Subjective Constitutional: Denies: no symptoms, chills, diaphoresis, fever, malaise, weakness, other HEENT: Denies: no symptoms, eye pain, blurred vision, tearing, double vision, ear pain, ear discharge, nose pain, nose congestion, throat pain, throat swelling, mouth pain, mouth swelling, other Cardiovascular: Denies: no symptoms, chest pain, edema, irregular heart rate, lightheadedness, palpitations, syncope, other Respiratory: Denies: no symptoms, cough, orthopnea, shortness of breath, SOB with excertion, SOB at rest, sputum, stridor, wheezing, other Gastrointestinal/Abdominal: Denies: no symptoms, abdomen distended, abdominal pain, black stools, tarry stools, blood in stool, constipated, diarrhea, difficulty swallowing, nausea, poor appetite, poor fluid intake, rectal bleeding , vomiting, other Neurologic/Psychiatric: Denies: no symptoms, anxiety, depressed, emotional problems, headache, numbness, paresthesia, pre-existing deficit, seizure, tingling, tremors, weakness, other Endocrine: Denies: no symptoms, excessive sweating, flushing, intolerance to cold, intolerance to heat, increased hunger, increased thirst, increased urine, unexplained weight gain, unexplained weight loss, other Hematologic/Lymphatic: Denies: no symptoms, anemia, easy bleeding, easy bruising, other Allergies: Coded Allergies: No Known Allergies (Unverified , 12/03/14) Subjective some cough this am noted, no f/c Objective Last 24 Hour Vital Signs Date Time Temp Pulse Resp B/P (MAP) Pulse Ox O2 Delivery O2 Flow Rate FiO2 03/07/18 08:00 97.7 49 20 103/73 (83) 97 97.7 03/07/18 04:44 40 03/07/18 04:00 97.3 54 20 128/75 (92) 95 97.3 03/07/18 00:00 98.8 56 20 116/74 (88) 95 98.8 03/06/18 23:43 54 03/06/18 23:24 60 20 100 Nasal Cannula 3.0 32 03/06/18 23:19 55 20 98 Nasal Cannula 3.0 32 03/06/18 21:00 Room Air 03/06/18 20:17 Nasal Cannula 2.0 28 03/06/18 20:17 95 Nasal Cannula 2.0 28 03/06/18 20:16 55 16 Nasal Cannula 2.0 28 03/06/18 20:00 98.1 61 20 95/59 (71) 97 98.1 03/06/18 19:42 52 03/06/18 16:00 97.7 63 20 113/68 (83) 95 97.7 03/06/18 16:00 55 03/06/18 12:00 97.9 52 20 115/72 (86) 96 97.9 03/06/18 12:00 58 Intake and Output 03/06/18 03/07/18 19:00 07:00 Intake Total 360 ml 515.00 ml Output Total 900 ml Balance -540 ml 515.00 ml Intake Oral 360 ml 240 ml IV Total 275.00 ml Output Urine Total 900 ml Laboratory Tests 03/07/18 06:25: White Blood Count 17.4H, Red Blood Count 5.18, Hemoglobin 14.9, Hematocrit 44.0 , Mean Corpuscular Volume 85, Mean Corpuscular Hemoglobin 28.7, Mean Corpuscular Hemoglobin Concent 33.8, Red Cell Distribution Width 11.4L, Platelet Count 267, Mean Platelet Volume 6.5, Neutrophils (%) (Auto) 84.4H, Lymphocytes (%) (Auto) 10.8L, Monocytes (%) (Auto) 4.6, Eosinophils (%) (Auto) 0.0, Basophils (%) (Auto) 0.2, Sodium Level 142, Potassium Level 3.6, Chloride Level 107, Carbon Dioxide Level 28, Anion Gap 7, Blood Urea Nitrogen 18, Creatinine 0.9, Estimat Glomerular Filtration Rate > 60, Glucose Level 109H, Calcium Level 8.8 Height (Feet): 5 Height (Inches): 8.00 Weight (Pounds): 216 General Appearance: no apparent distress EENT: TMs normal Neck: normal alignment Cardiovascular: normal rate Respiratory/Chest: lungs clear Abdomen: normal bowel sounds Extremities: non-tender Edema: no edema noted Leg (L), no edema noted Leg (R) Edema: moderate edema Neurologic: no motor/sensory deficits, alert Skin: normal pigmentation Crow Mora MD Mar 07, 2018 10:31
[2018-03-07 12:00] VITALS: BP 122/79
[2018-03-07] MEDS: cefTRIAXone 1 GM in D5W 55 ML IVPB SCH (12:32)
--- NOTE | 2018-03-07 13:44 | General Progress Note ---
Assessment/Plan Assessment/Plan 1)Mild COPD exacerbation, continue prednisone taper. Continue inhaled bronchodilators and azithromycin. 2)Discharge from old tracheostomy site, possible tracheocutaneous or TE fistula , seen by Pulm and ENT. Barium esophagram pending for today. Needs aspiration precautions 3)E. coli UTI, on ceftriaxone 4)history of TBI, epilepsy, continue Keppra 5)history of paranoid schizophrenia, depression and anxiety, continue Klonopin 6)history of hypertension, not on anti-hypertensives, controlled. Subjective Date patient seen: Mar 07, 2018 Time patient seen: 13:42 ROS Limited/Unobtainable: Yes Cardiovascular: Reports: chest pain Respiratory: Reports: shortness of breath Allergies: Coded Allergies: No Known Allergies (Unverified , 12/03/14) Subjective Medical followup for mild COPD exacerbation, UTI and possible tracheocutaneous versus TE fistula. Had a brief aspiration episode during my encounter requiring suctioning. Objective Last 24 Hour Vital Signs Date Time Temp Pulse Resp B/P (MAP) Pulse Ox O2 Delivery O2 Flow Rate FiO2 03/07/18 09:00 Room Air 03/07/18 08:00 97.7 49 20 103/73 (83) 97 97.7 03/07/18 04:44 40 03/07/18 04:00 97.3 54 20 128/75 (92) 95 97.3 03/07/18 00:00 98.8 56 20 116/74 (88) 95 98.8 03/06/18 23:43 54 03/06/18 23:24 60 20 100 Nasal Cannula 3.0 32 03/06/18 23:19 55 20 98 Nasal Cannula 3.0 32 03/06/18 21:00 Room Air 03/06/18 20:17 Nasal Cannula 2.0 28 03/06/18 20:17 95 Nasal Cannula 2.0 28 03/06/18 20:16 55 16 Nasal Cannula 2.0 28 03/06/18 20:00 98.1 61 20 95/59 (71) 97 98.1 03/06/18 19:42 52 03/06/18 16:00 97.7 63 20 113/68 (83) 95 97.7 03/06/18 16:00 55 Intake and Output 03/06/18 03/07/18 19:00 07:00 Intake Total 360 ml 515.00 ml Output Total 900 ml Balance -540 ml 515.00 ml Intake Oral 360 ml 240 ml IV Total 275.00 ml Output Urine Total 900 ml Laboratory Tests 03/07/18 06:25: White Blood Count 17.4H, Red Blood Count 5.18, Hemoglobin 14.9, Hematocrit 44.0 , Mean Corpuscular Volume 85, Mean Corpuscular Hemoglobin 28.7, Mean Corpuscular Hemoglobin Concent 33.8, Red Cell Distribution Width 11.4L, Platelet Count 267, Mean Platelet Volume 6.5, Neutrophils (%) (Auto) 84.4H, Lymphocytes (%) (Auto) 10.8L, Monocytes (%) (Auto) 4.6, Eosinophils (%) (Auto) 0.0, Basophils (%) (Auto) 0.2, Sodium Level 142, Potassium Level 3.6, Chloride Level 107, Carbon Dioxide Level 28, Anion Gap 7, Blood Urea Nitrogen 18, Creatinine 0.9, Estimat Glomerular Filtration Rate > 60, Glucose Level 109H, Calcium Level 8.8 03/07/18 10:35: Prothrombin Time 10.7, Prothromb Time International Ratio 1.0 Height (Feet): 5 Height (Inches): 8.00 Weight (Pounds): 216 General Appearance: alert Neck: supple Cardiovascular: normal rate, regular rhythm Respiratory/Chest: lungs clear, normal breath sounds, no respiratory distress Abdomen: normal bowel sounds, non tender Ernesto Schuster MD Mar 07, 2018 13:44
--- NOTE | 2018-03-07 15:32 | Diagnostic Imaging Report ---
Indication: Difficulty swallowing, suspected tracheoesophageal fistula Technique: Patient ingested oral thick liquid barium in the left lateral decubitus position, and rapid sequence spot images were obtained Comparison: none Findings: Exam is limited; patient was difficult to position and abundant overlying soft tissue and osseous structures somewhat limited visualization of the hypopharynx and cervical esophagus. No definite extravasation of contrast from the esophagus or trachea esophageal fistula is demonstrated. However, abundant contrast is seen to enter the trachea, probably due to aspiration which is suboptimally visualized. A follow-up chest radiograph obtained as part of the exam demonstrates aspirated contrast within the left mainstem bronchus. Patient coughed on multiple occasions Impression: No definite tracheoesophageal fistula demonstrated, although evaluation for such is somewhat limited given the limitations described above Somewhat abundant contrast is seen to enter the trachea; this appears to be due to aspiration of contrast rather than due to fistulization. Speech pathology swallowing study evaluation should be considered
[2018-03-07 16:00] VITALS: BP 124/89
[2018-03-07 20:00] VITALS: BP 112/83
[2018-03-08] VITALS: BP 116/76
[2018-03-08] MEDS: Azithromycin 500 MG in D5W 275 ML IV SCH (00:22)
[2018-03-08 04:00] VITALS: BP 107/66
[2018-03-08] MEDS: Heparin 5000 units/ml inj SUBQ SCH ×2 (05:47→13:40)
[2018-03-08 07:11] LABS: BASOPHILS % (AUTO) 0.9 % (0.0-2.0); EOSINOPHILS % (AUTO) 0.1 % (0.0-3.0); HEMOGLOBIN 14.9 G/DL (14.2-18.0); LYMPHOCYTES % (AUTO) 21.1 % (20.0-45.0); MEAN CORPUSCULAR VOLUME 85 FL (80-99); MONOCYTES % (AUTO) 6.8 % (1.0-10.0); NEUTROPHILS % (AUTO) 71.2 % (45.0-75.0); PLATELET COUNT 248 K/UL (150-450); RED BLOOD COUNT 5.04 M/UL (4.70-6.10); RED CELL DISTRIBUTION WIDTH 11.5 % (11.6-14.8); WHITE BLOOD COUNT 12.2 K/UL (4.8-10.8)
[2018-03-08 07:25] LABS: ANION GAP 7 mmol/L (5-15); BLOOD UREA NITROGEN 17 mg/dL (7-18); CALCIUM 8.5 MG/DL (8.5-10.1); CARBON DIOXIDE 25 MMOL/L (21-32); CHLORIDE 107 MMOL/L (98-107); CREATININE 0.8 MG/DL (0.55-1.30); POTASSIUM 3.7 MMOL/L (3.5-5.1); SODIUM 139 MMOL/L (136-145)
[2018-03-08 08:00] VITALS: BP 131/81
[2018-03-08] MEDS: Milk of Magnesia 30ml Ud ORAL SCH (09:00)
[2018-03-08] MEDS: Aspirin Baby 81mg ORAL SCH (09:28)
[2018-03-08] MEDS: Ascorbic Acid 500mg tab ORAL SCH (09:28)
[2018-03-08] MEDS: Docusate 100mg cap ORAL SCH (09:29)
[2018-03-08] MEDS: cefTRIAXone 1 GM in D5W 55 ML IVPB SCH (10:39)
[2018-03-08 12:00] VITALS: BP 112/70
[2018-03-08] MEDS ORDERED: PREDNISONE10 MG ORAL (15:21)
[2018-03-08] MEDS ORDERED: CEFUROXIME250 MG PO (15:30)
--- NOTE | 2018-03-08 15:31 | Discharge Summary ---
Discharge Summary Hospital Course Date of Admission Mar 04, 2018 at 19:22 Date of Discharge 03/08/18 Admitting Diagnosis Sepsis, Urinary Tract Infection, COPD HPI Stevie Dhillon is a 57 year old male who was admitted on Mar 04, 2018 at 19:22 for Sepsis,Urinary Tract Infection, Chronic Consultations Pulm ENT Procedures None Hospital Course Patient presented with dyspnea, admitted to the medical service with COPD exacerbation, treated with IV Solu-Medrol, azithromycin and inhaled bronchodilators with improvement in respiratory status. Seen by Pulm who suspected tracheocutaneous fistula, seen by ENT, Dr. Peralta who recommended barium esophagram, negative for TE fistula. Patient also was noted to have an E. coli UTI without sepsis, treated with ceftriaxone. The patient will be discharged back to the nursing in improved condition. Will follow up with Dr. Peralta next week for repair of tracheocutaneous fistula. Discharge Medications New Medications: Prednisone* (Prednisone*) 10 Mg Tablet 10 MG ORAL DAILY, #30 TAB 0 Refills Continued Medications: Acetaminophen* (Tylenol Extra Strength*) 500 Mg Tablet 500 MG ORAL Q6H PRN for Mild Pain/Temp > 100.5, TAB 0 Refills Albuterol Sulfate* (Albuterol Sulfate Hhn*) 2.5 Mg/3 Ml Vial.neb 3 ML INH Q4H PRN for Shortness of Breath, EA Ascorbic Acid* (Vitamin C*) 500 Mg Tablet 500 MG ORAL DAILY, #30 TAB 0 Refills Aspirin (Aspirin) 81 Mg Tab.chew 81 MG PO, TAB Bisacodyl (Bisacodyl) 10 Mg Supp.rect 10 MG RC, SUPP Clonazepam* (Klonopin*) 1 Mg Tablet 1 MG ORAL BID, #15 TAB 0 Refills Cranberry Fruit Concentrate (Cranberry) 450 Mg Tablet 450 MG PO, TAB Docusate Sodium (Docusate Sodium) 100 Mg Tablet 100 MG ORAL TWICE A DAY, #60 TAB 0 Refills [fleet oil ] () Folic Acid (Folic Acid) 1 Mg Tablet 1 MG PO, TAB Levetiracetam* (Levetiracetam*) 500 Mg Tablet 500 MG ORAL TWICE A DAY, #60 TAB 0 Refills Mag Hydrox/Al Hydrox/Simeth (Alum-Mag Hydroxide-Simeth Liq) 360 Ml Oral.susp 30 ML PO, ML Magnesium Hydroxide (Milk of Magnesia) 400 Mg/5 Ml Oral.susp 30 ML ORAL DAILY, ML Multivitamin With Minerals (Multivitamins With Minerals*) 1 Each Tablet 1 TAB ORAL DAILY, TAB Discharge Discharge Disposition Patient was discharged to SNF/Subacute Facility(03) Ernesto Schuster MD Mar 08, 2018 15:31
[2018-03-08 16:00] VITALS: BP 112/61
--- NOTE | 2018-03-09 15:14 | Diagnostic Imaging Report ---
Indications: Dysphagia Technique: Patient ingested multiple substances under the supervision of speech pathology. Video fluoroscopic recording performed. Total fluoroscopy time to 51 seconds. Total dose area product 0.79253 mGycm2. Total number fluoroscopic runs-11 Comparison: Reference made to esophagram performed the previous day Findings: Multiple episodes of deep penetration of thin liquid barium demonstrated. There is early pooling in the vallecula and piriform sinuses. No definite aspiration. Deep penetration of nectar thick liquid barium is also demonstrated. No definite aspiration. With ingestion of honey thick liquid barium and barium puree, early pooling in the vallecula and piriform sinuses. No definite aspiration or penetration and no significant residual. Impression: Positive for penetration of thin and nectar thick liquid barium. No definite aspiration; aspiration observed on prior esophagram was not observed on this study. Please refer to speech pathology report for more detailed analysis
== END 2018-03-08 16:50 | DRG 140 ==
LOC: EDBD 15:45 → EMR 17:40 → 2E 19:22 → EDBEDREQ 20:18 → EDBEDREQSVC 20:51 → EDBEDREQ 21:16 → 2W 21:33 → 2E 03-05 16:23
DX: J44.1 Chronic obstructive pulmonary disease with (acute) exacerbation (principal); E87.2 Acidosis; N39.0 Urinary tract infection, site not specified; B96.20 Unspecified Escherichia coli [E. coli] as the cause of diseases classified elsewhere; Z87.820 Personal history of traumatic brain injury; G40.909 Epilepsy, unspecified, not intractable, without status epilepticus; F20.0 Paranoid schizophrenia; F41.8 Other specified anxiety disorders; I10 Essential (primary) hypertension; K21.9 Gastro-esophageal reflux disease without esophagitis; Z87.891 Personal history of nicotine dependence
CPT/HCPCS: 36415; 36600; 71045; 74220; 74230; 80048; 80053; 80299; 81003; 82248; 82550; 82553; 82803; 83605; 84484; 85007; 85025; 85060; 85610; 85651; 86140; 87040; 87081; 87086; 87181; 92610; 93005; 93970; 94640; 94664; 94760; 96361; 96365; 96375; 99285; J7620

== ENCOUNTER 2020-05-20 23:39 | Inpatient (IN) | payer MEDICAID, OTHER ==
[~2020-05-20] VITALS: Ht 177.8 cm; Wt 91.2 kg
[2020-05-20 23:39] VITALS: BP 115/70
[~2020-05-20 23:39] MED LIST: ALBUTEROL2.5 MG/3 M NEBULIZ062; ALUM-MAG HYDRO360 ML PO; ASPIRIN81 M3 PO; BISACODYL10 M1 RC; CEFUROXIME250 MG PO; CRANBERRY450 M3 PO; DOCUSATE SODIU100 M2 ORAL; FOLIC ACID1 M1 PO; KLONOPIN1 MG ORAL; LEVETIRACETAM500 MG ORAL; MOM30 ML ORAL; MULTIVITAMINS1 EAC8 ORAL; PREDNISONE10 MG ORAL; QVAR7.3 GM INH; TYLENOL EXTRA500 MG ORAL; VITAMIN C500 M1 ORAL; [UNRECOGNIZED DRUG - OTHER]
--- NOTE | 2020-05-20 23:39 | NUR ---
ED Nurse Note: Pt [facility] d/t fever 102.0 oral and cough. Per EMS report pt was given 1000mg tylenol prior to arrival. Pt is awake, alert, uncooperative with care, anxious. Breathing even but labored on RA sating 92%, pt placed on 3L nC now sating 100%. Other vitals stable. Pt has tracheostomy with dry gauze placed over.
--- NOTE | 2020-05-20 23:55 | Emergency Room Report ---
History of Present Illness General Chief Complaint: Flu Like Symptoms Source: Patient, EMS Present Illness HPI Patient is a 59-year-old male sent in from nursing facility [facility] after increased difficulty with respirations. Gradual onset of symptoms. Has been having increased fever up to 103. Had been given medications for fever. Had prior history of COPD. Was noted to have prior tracheostomy with stoma closure. Prior history of psychiatric disease. Per EMS had some audible rhonchi. Prior history of seizures. Takes Depakote as well as Klonopin as well as Keppra. Patient's remained at the facility had also been ill with a fever. 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 COVID-19 Screening: Negative COVID-19 COVID-19 Testing Source: 05/13/2020 THERAPEUTIC CASE MANAGER Patient History Past Medical History: see triage record Pertinent Family History: seizures Reviewed Nursing Documentation: PMH: Agreed; PSxH: Agreed Nursing Documentation-PMH Past Medical History: No History, Except For Hx Cardiac Problems: Yes Hx Hypertension: Yes Hx Asthma: Yes Hx COPD: Yes Hx Cancer: No Hx Gastrointestinal Problems: Yes Hx Seizures: Yes Hx Traumatic Brain Injury: Yes Review of Systems All Other Systems: limited Physical Exam Vital Signs Date Time Temp Pulse Resp B/P (MAP) Pulse Ox O2 Delivery O2 Flow Rate FiO2 05/20/20 23:39 99.0 80 20 128/75 (92) 92 Room Air Sp02 EP Interpretation: reviewed, normal General Appearance: normal inspection, well appearing, no apparent distress, alert, GCS 15 Head: atraumatic ENT: normal ENT inspection, hearing grossly normal, normal voice Neck: normal inspection, full range of motion, supple, no bony tend, other - Closed tracheostomy scar Respiratory: no respiratory distress, no retraction, rhonchi Cardiovascular #1: regular rate, rhythm, no edema Gastrointestinal: normal inspection, normal bowel sounds, non tender, soft, no guarding, no hernia Genitourinary: no CVA tenderness Musculoskeletal: normal inspection, back normal, normal range of motion Neurologic: alert, motor strength/tone normal, oriented x3, responsive, speech normal, normal inspection Psychiatric: normal inspection, judgement/insight normal, mood/affect normal Medical Decision Making Restraint Attestation I, Manjit Barton MD, have personally evaluated this patient. Laboratory tests have been reviewed and addressed accordingly. The patient is deemed to present a danger to themselves and/or others. This is based on the exam, history (provided by patient, EMS/[facility] and/or family) and observed or reported behavior. Attempts for non-invasive measures have been considered and/or attempted, however, have been futile. It is in the best interest of the nursing staff, the patient, and others involved in this patient's care that non behavioral restraints be applied. Patient evaluation reveals the following: Patient somewhat agitated and pulling at lines. Diagnostic Impression: Primary Impression: Acute febrile illness Additional Impression: Suspected 2019 novel coronavirus infection ER Course Patient presented for fever. Differential diagnosis include was not limited to pneumonia, bronchitis urinary tract infection, coronavirus infection among others. Because of complexity of patient's case laboratory tests and imaging studies were ordered. Patient was maintained on supplemental oxygen. He was given IV antibiotics due to pneumonia on chest x-ray. Coronavirus testing was ordered. Rapid coronavirus testing was positive. Chest x-ray showed bilateral patchy infiltrates consistent with pneumonia. Patient was given Decadron due to hypoxia Dr. Dick Espinoza was contacted for inpatient management Labs Test 05/21/20 00:10 05/21/20 00:37 White Blood Count 3.8 K/UL (4.8-10.8) Red Blood Count 4.85 M/UL (4.70-6.10) Hemoglobin 12.5 G/DL (14.2-18.0) Hematocrit 38.1 % (42.0-52.0) Mean Corpuscular Volume 79 FL (80-99) Mean Corpuscular Hemoglobin 25.8 PG (27.0-31.0) Mean Corpuscular Hemoglobin Concent 32.9 G/DL (32.0-36.0) Red Cell Distribution Width 15.4 % (11.6-14.8) Platelet Count 108 K/UL (150-450) Mean Platelet Volume 7.8 FL (6.5-10.1) Neutrophils (%) (Auto) 64.6 % (45.0-75.0) Lymphocytes (%) (Auto) 26.6 % (20.0-45.0) Monocytes (%) (Auto) 7.9 % (1.0-10.0) Eosinophils (%) (Auto) 0.0 % (0.0-3.0) Basophils (%) (Auto) 0.9 % (0.0-2.0) Sodium Level 142 MMOL/L (136-145) Potassium Level 3.7 MMOL/L (3.5-5.1) Chloride Level 106 MMOL/L (98-107) Carbon Dioxide Level 27 MMOL/L (21-32) Anion Gap 9 mmol/L (5-15) Blood Urea Nitrogen 18 mg/dL (7-18) Creatinine 1.1 MG/DL (0.55-1.30) Estimat Glomerular Filtration Rate > 60 mL/min (>60) Glucose Level 130 MG/DL (74-106) Lactic Acid Level 1.10 mmol/L (0.4-2.0) Calcium Level 7.4 MG/DL (8.5-10.1) Ferritin 1089 NG/ML (8-388) Total Bilirubin 0.3 MG/DL (0.2-1.0) Aspartate Amino Transf (AST/SGOT) 51 U/L (15-37) Alanine Aminotransferase (ALT/SGPT) 31 U/L (12-78) Alkaline Phosphatase 68 U/L (46-116) Lactate Dehydrogenase 318 U/L (81-234) Total Creatine Kinase 213 U/L (26-308) Creatine Kinase MB < 0.5 NG/ML (0.0-3.6) Creatine Kinase MB Relative Index 0.2 Troponin I 0.000 ng/mL (0.000-0.056) C-Reactive Protein, Quantitative 11.4 mg/dL (0.00-0.90) Pro-B-Type Natriuretic Peptide 70 pg/mL (0-125) Total Protein 7.1 G/DL (6.4-8.2) Albumin 2.5 G/DL (3.4-5.0) Globulin 4.6 g/dL Albumin/Globulin Ratio 0.5 (1.0-2.7) Lipase 1624 U/L (73-393) Valproic Acid (Depakene) Level 49 MCG/ML (50-100) Arterial Blood pH 7.456 (7.350-7.450) Arterial Blood Partial Pressure CO2 34.3 mmHg (35.0-45.0) Arterial Blood Partial Pressure O2 88.8 mmHg (75.0-100.0) Arterial Blood HCO3 23.6 mmol/L (22.0-26.0) Arterial Blood Oxygen Saturation 96.1 % (95-100) Arterial Blood Base Excess 0.2 (-2-2) Sherif Test Positive EKG Diagnostic Results Troponin ordered: Yes Rate: normal Rhythm: NSR ST Segments: no acute changes Last Vital Signs Date Time Temp Pulse Resp B/P (MAP) Pulse Ox O2 Delivery O2 Flow Rate FiO2 05/20/20 23:39 99.0 80 20 128/75 (92) 92 Room Air Status: improved Disposition: ADMITTED INPATIENT Condition: Stable Manjit Barton MD May 20, 2020 23:55
[2020-05-21] MEDS ORDERED: LORazepam Inj 2mg/ml 1ml IV ONE
[2020-05-21] MEDS ORDERED: Azithromycin 500 MG in NS 275 ML IVPB ONE ×2
[2020-05-21] MEDS ORDERED: cefTRIAXone 2 GM in NS 110 ML IV ONE ×2
--- NOTE | 2020-05-21 00:30 | NUR ---
ED Nurse Note: blood, COVID swab collected and sent to lab
--- NOTE | 2020-05-21 00:34 | NUR ---
ED Nurse Note: sonar technician at bedside
--- NOTE | 2020-05-21 00:34 | NUR ---
ED Nurse Note: RT at bedside
--- NOTE | 2020-05-21 00:51 | NUR ---
ED Nurse Note: urine collected and sent to lab
[2020-05-21 00:56] LABS: BASOPHILS % (AUTO) 0.9 % (0.0-2.0); HEMATOCRIT 38.1 % (42.0-52.0); HEMOGLOBIN 12.5 G/DL (14.2-18.0); LYMPHOCYTES % (AUTO) 26.6 % (20.0-45.0); MEAN CORPUSCULAR VOLUME 79 FL (80-99); MONOCYTES % (AUTO) 7.9 % (1.0-10.0); NEUTROPHILS % (AUTO) 64.6 % (45.0-75.0); PLATELET COUNT 108 K/UL (150-450); RED BLOOD COUNT 4.85 M/UL (4.70-6.10); RED CELL DISTRIBUTION WIDTH 15.4 % (11.6-14.8); WHITE BLOOD COUNT 3.8 K/UL (4.8-10.8)
[2020-05-21 05:40] LABS: ALANINE AMINOTRANSFERASE 31 U/L (12-78); ALBUMIN 2.5 G/DL (3.4-5.0); ALBUMIN/GLOBULIN RATIO 0.5 (1.0-2.7); ALKALINE PHOSPHATASE 68 U/L (46-116); ANION GAP 9 mmol/L (5-15); ASPARTATE AMINO TRANSFERASE 51 U/L (15-37); BILIRUBIN,TOTAL 0.3 MG/DL (0.2-1.0); BLOOD UREA NITROGEN 18 mg/dL (7-18); CALCIUM 7.4 MG/DL (8.5-10.1); CARBON DIOXIDE 27 MMOL/L (21-32); CHLORIDE 106 MMOL/L (98-107); CKMB < 0.5 NG/ML (0.0-3.6); CREATINE KINASE 213 U/L (26-308); CREATININE 1.1 MG/DL (0.55-1.30); FERRITIN 1089 NG/ML (8-388); LACTATE DEHYDROGENASE 318 U/L (81-234); POTASSIUM 3.7 MMOL/L (3.5-5.1); SODIUM 142 MMOL/L (136-145)
[2020-05-21] MEDS ORDERED: Valproate Sodium INJ 500 MG in D5W 55 ML IVPB ONE (06:00)
[2020-05-21 06:02] LABS: APPEARANCE,URINE CLEAR; COLOR,URINE YELLOW; PH,URINE 5 (4.5-8.0); PROTEIN,URINE 2+ (NEGATIVE)
[2020-05-21 06:03] LABS: BILIRUBIN, URINE NEGATIVE (NEGATIVE); GLUCOSE, URINE (UA) NEGATIVE (NEGATIVE); KETONES,URINE NEGATIVE (NEGATIVE); LEUKOCYTE ESTERASE ,URINE 1+ (NEGATIVE); NITRITE,URINE NEGATIVE (NEGATIVE); UROBILINOGEN,URINE NORMAL MG/DL (0.0-1.0)
[2020-05-21] MEDS ORDERED: ENOXAPARIN40 MG/0.4 SUBQ (06:07)
[2020-05-21] MEDS ORDERED: DEPAKOTE ER500 MG ORAL (06:07)
[2020-05-21] MEDS ORDERED: BISACODYL5 MG ORAL (06:07)
[2020-05-21] MEDS ORDERED: CRANBERRY450 M4 PO (06:07)
[2020-05-21] MEDS ORDERED: COLACE100 MG ORAL (06:07)
[2020-05-21] MEDS ORDERED: TRAMADOL HCL50 MG ORAL (06:07)
[2020-05-21] MEDS ORDERED: KLONOPIN1 MG ORAL (06:07)
[2020-05-21 06:56] VITALS: BP 115/76
--- NOTE | 2020-05-21 07:04 | NUR ---
HAND-OFF: Report given to ERNIE Mtz and ERNIE Kathleen.
--- NOTE | 2020-05-21 07:42 | NUR ---
ED Nurse Note: Report given to ERNIE Joseph on 2E
--- NOTE | 2020-05-21 08:00 | NUR ---
NURSE NOTES: Patient transferred from ED to room 214-1. Received report from Bibi/ERNIE. Pt alert and oriented X2, on 3L nasal cannula, no distress or SOB noted. compressor repairer placed and vital signs taken. Belongings check list done and signed by receiving nurse. IV on right hand 20G, patent and clean. Pt oriented to call light, encouraged to use it when needed. Fall precautions measures done. Bed in the lowest position and locked, side rails up X3. Will contact primary Dr for admissions orders.
--- NOTE | 2020-05-21 08:12 | NUR ---
ED Nurse Note: restaints d/cd per ED MD. Pt calm and cooperative.
[2020-05-21 08:20] VITALS: BP 111/69
--- NOTE | 2020-05-21 08:41 | NUR ---
TRANSFER TO FLOOR: Patient transferred to as ordered, per ER MD. Report given to Opal Fernandez on tele. Belongings given to shabana. Belongings list is complete and in chart. Transported on tele to 214 on tele monitor with EMERGENCY COMMUNICATIONS OPERATOR. Restraints in place dt pulling on lines, mask and NC. No signs of distress noted. Addendum: 05/21/20 at 0848 by AGUSTINA Corrected time 08:10
[2020-05-21] MEDS ORDERED: Varibar Thin Liquid powder 148gm MC PRN (09:45)
[2020-05-21] MEDS ORDERED: Varibar Nectar 240ml MC PRN (09:45)
[2020-05-21] MEDS ORDERED: Varibar Honey 250ml MC PRN (09:45)
[2020-05-21] MEDS ORDERED: Varibar Pudding 230ml MC PRN (09:45)
[2020-05-21 12:00] VITALS: BP 102/69
--- NOTE | 2020-05-21 13:00 | NUR ---
Speech Pathology note (Bedside Dysphagia Evaluation) Previous Hospitalization at [facility]: 03/04/2018~03/08/2018 Reason for Previous Hospitalization: COPD Exacerbation with pneumonia ENT consulted by Alf TROY concerning of Tracheal fistula: Consultation, and final recommendation reviewed. Videoesophagram and Videofluoroscopic Swallow Study: 03/07/2018: I reviewed the images. Concluded: No evidence of TE fistula, tracheal stoma white secretion follow through Original Admission [place]: 03/31/2015 Current: 07/20/2019 PO diet and [place]: Pureed and [place] thick liquid Brief note: Mr. Dhillon is a 59 year old male admitted OM last night with fever and dyspnea. He was found to have positive for COVID 19. D.Dimer is 1.09. White count is 3.8. SPO2 is 92 ORA. PMH: Epilepsy, COPD, Psychiatric Findings: Mr. Dhillon is alert and oriented x 1. His speech is dysarthric. His tracheal stoma site is noted with leak air with secretion. The secretion is whitish, mildly beige color. Thickness of secretion is milky consistency. The tracheal stoma leak does not compromise phonation. His cough is very strong to bring up some secretion at stoma and oropharynx. Given him thin, thick, pureed consistencies, delayed cough was noted with thin liquid. Interpretation: 1. Underlying oropharyngeal dysphagia with aspiration risk on thin liquid 2. Likely chronic micro aspiration based on his secretion Plan: 1. PO diet with pureed and nectar thick liquid 2. Aspiration precaution Chepe Smith
[2020-05-21 16:00] VITALS: BP 100/64
--- NOTE | 2020-05-21 16:30 | Consultation ---
DATE OF CONSULTATION: 05/21/2020 PULMONARY CONSULTATION HISTORY OF PRESENT ILLNESS: This is a 59-year-old male admitted to the hospital with dyspnea. The patient is a long-term resident and found to be febrile. He has a history of seizure disorder as well as COPD. He is noted to be on Depakote, Klonopin, and Keppra. The patient also has underlying psychiatric illness. The patient was seen, evaluated in the emergency room. He underwent a rapid COVID-19 gene assay, which was positive. The patient's roommate has also tested positive for this problem. The patient was seen and worked up in the emergency room and admitted to the hospital. PAST HISTORY: Seizure disorder, psych disorder, long-term resident, COPD. REVIEW OF SYSTEMS: Unreliable. SURGERIES: There is a history of traumatic brain injury in the past. PHYSICAL EXAMINATION: GENERAL: A 59-year-old male. HEENT: Unremarkable. CHEST: Clear breath sounds bilaterally. ABDOMEN: Soft. There is no edema. There is an old tracheostomy scar noted. VITAL SIGNS: Blood pressure is 120/70, heart rate 84, respirations 20, T-max 99.1 at this point in time. Overnight, temperature was also 99.0. Currently, saturations are 95% on 3 L oxygen. LABORATORY DATA: Lab testing shows white count 3.2, otherwise normal CBC and BMP. Glucose 130, ferritin 1089, LDH 318, troponin negative, CRP 11.4. Toxicology is negative. Coags show D-dimer 1.0. Urinalysis is negative. X-ray chest, unable to review. IMPRESSION: 1. COVID-19 pneumonia. 2. Borderline hypoxemia. 3. Seizure disorder. 4. care home resident. 5. Psych disorder. DISCUSSION: Admit to the hospital. Agree with admission and care. We will provide supplemental oxygen. He is a candidate for Decadron, which I will institute. Defer remdesivir to ID specialist. We will follow carefully. Edmundo Barajas M.D. DR: [place] JOB#: [id number] CC:
--- NOTE | 2020-05-21 19:00 | Consultation ---
DATE OF CONSULTATION: 05/21/2020 INFECTIOUS DISEASE CONSULTATION CONSULTING PHYSICIAN: Pankaj Herrera MD PRIMARY ATTENDING: Dick Phillips MD REASON FOR CONSULTATION: COVID-19 disease. HISTORY OF PRESENT ILLNESS: This is a 59-year-old longterm resident admitted today because of fever, had a temperature of 103.1, had difficulty of breathing, hypoxemic. PAST MEDICAL HISTORY: Significant for COPD, hypertension, hyperlipidemia, anemia, history of traumatic brain injury. Had history of tracheostomy in the past. ALLERGIES: No known drug allergies. MEDICATIONS: Got a dose of dexamethasone, ceftriaxone, and azithromycin in ER. SOCIAL HISTORY: custodial resident, . REVIEW OF SYSTEMS: Very limited, has difficulty talking. PHYSICAL EXAMINATION: VITAL SIGNS: Temperature 97.7, pulse 75, blood pressure 111/69. GENERAL APPEARANCE: No acute distress. HEAD AND NECK: Moist mucous membranes. Has healing tracheostomy site. HEART: Normal rate. LUNGS: Few rhonchi. Patient is getting oxygen by nasal cannula. ABDOMEN: Soft. EXTREMITIES: No edema. LABORATORY DATA: COVID test was positive. WBC 3.8, hemoglobin 12.5, hematocrit 30.5, platelets 108,000. Sodium 142, potassium 3.7, chloride 106, bicarb 27, BUN 18, creatinine normal, glucose is 130. Lipase is 1624. LDH is 318. Chest x-ray had poor quality, probably had some infiltrate. IMPRESSION: COVID-19 disease, mild hypoxemia. O2 saturation on room air is 91%. Has pancreatitis, COPD, hyperlipidemia, thrombocytopenia. RECOMMENDATIONS: We will continue with ceftriaxone. We will continue with dexamethasone. We will follow up the chest x-ray. If the condition becomes worse, we will start on remdesivir. At the end of my exam, I thank Dr. Phillips for involving me in the care of this patient. Pankaj Herrera M.D. DR: Nataliya JOB#: [id number] CC: ELIO
--- NOTE | 2020-05-21 19:12 | Diagnostic Imaging Report ---
Indication: Shortness of breath Technique: One view of the chest Comparison: 03/04/2018 Findings: Body habitus limits evaluation. Inspiration is suboptimal. The heart size is upper limits normal. No definite acute infiltrates, effusions, or congestion Impression: No acute process
--- NOTE | 2020-05-21 19:44 | NUR ---
NURSE HAND-OFF REPORT: Important Events on Shift:New admission Patient Status: Stable Diet: Regular puree moist, nectar thick liquids Pending Orders: Pending Results/Labs: Pending MD notification: Latest Vital Signs: Temperature 97.8 , Pulse 61 , B/P 100 /64 , Respiratory Rate 22 , O2 SAT 92 , Nasal Cannula, O2 Flow Rate 3.0 . Vital Sign Comment: Stable EKG Rhythm: Sinus Rhythm Rhythm change?: N MD Notified?: - MD Response: Latest Prakash Fall Score: 75 Fall Risk: High Risk Safety Measures: Call light Within Reach, Bed Alarm Zone 1, Side Rails Side Rails x3, Bed position Low and Locked. Fall Precautions: Yellow Socks Yellow Gown Door Sign Patient Fall Education Report given to Corrina/ERNIE.
--- NOTE | 2020-05-21 19:45 | NUR ---
NURSE NOTES: Report received from ERNIE Poe. Patient is awake on bed, alert and oriented x 1-2. athletic monitor is in place, shows sinus rhythm with no chest pain reported. On oxygen via nasal cannula @ 3Lpm with no SOB nor desaturation noted. On regular, pureed moist, nectar thick liquids and can swallow whole pills. IV site is on right hand g-20 running 1/2 NS @ 60 cc/hour that is patent and intact. Safety measures are in place, bed in lowest and locked position, side rails up x 2, call light button and bedside table within reach, instructed to call for any assistance needed. Will continue plan of care.
[2020-05-21 20:00] VITALS: BP 106/45
[2020-05-21] MEDS: cefTRIAXone 1 GM in D5W 55 ML IVPB SCH (20:55)
--- NOTE | 2020-05-21 22:00 | History and Physical Report ---
DATE OF ADMISSION: 05/21/2020 HISTORY OF PRESENT ILLNESS: Patient comes from SNF because of fever. Patient also is found to have COVID positive pneumonia. There is an outbreak in the facility. Patient has a fever of 103. Has history of COPD. Patient also is a psychiatric patient. Reports shortness of breath and cough. Denies nausea, vomiting, or diarrhea. Denies fever or chills. Denies headache. PAST MEDICAL HISTORY: Significant for psychosis, seizures, hypertension, asthma, COPD, GERD, seizures, traumatic brain injury, constipation. PAST SURGICAL HISTORY: None. FAMILY HISTORY: Noncontributory. SOCIAL HISTORY: He has history of smoking. Denies history of drug abuse. Denies history of alcohol abuse. Comes from a [facility]. MEDICATIONS: Bisacodyl, aspirin, vitamin C, Depakote, Klonopin, docusate, folic acid, Keppra, multivitamin. REVIEW OF SYSTEMS: HEENT: Denies headaches. RESPIRATORY: Does have shortness of breath and cough for a couple of days. CARDIOVASCULAR: Denies chest pain. Denies orthopnea. GASTROINTESTINAL: Denies nausea, vomiting, diarrhea. Does have heartburn. EXTREMITIES: Denies pain. CENTRAL NERVOUS SYSTEM: Denies change in speech pattern. He is a poor historian. PHYSICAL EXAMINATION: VITAL SIGNS: Temperature is 97.7, pulse is 75, blood pressure 111/69. HEENT: PERRLA. CHEST: Clear to auscultation CARDIOVASCULAR: Regular rate and rhythm. No murmurs or extra sounds. GASTROINTESTINAL: Soft, nontender, nondistended. No organomegaly. EXTREMITIES: No edema. Moves all four extremities. Dorsalis pedis pulses are present. NEUROLOGIC: Sensory intact to light touch. Poor historian. LABORATORY DATA: WBC of 3.8, hemoglobin of 12.5, platelets of 108. Sodium 142, potassium 3.7, BUN of 18, creatinine 1.1. ASSESSMENT AND PLAN: Positive pneumonia. Patient was also hypoxic initially. Patient also has history of seizures. Psychiatric patient. I have consulted Dr. Edmundo Barajas, Dr. Pankaj Herrera, Dr. Gomes for psych patient issues as well as COVID positive pneumonia. Antibiotics per Dr. Pankaj Herrera. Dick Phillips M.D. DR: CALISTA JOB#: [id number] CC:
--- NOTE | 2020-05-21 23:15 | Psychiatry Consultation ---
Psychiatry Consultation Psychiatry Consultation Chief Complaint: Flu Like Symptoms History of Present Illness: The patient is admitted for COVID. He is COVID positive, presents with anxiety, hopelessness, psychotic, and disorganized speech and behavior. PAST PSYCHIATRIC HISTORY: Schizophrenia, anxiety disorder. PAST MEDICAL HISTORY: GERD, seizure, COPD, asthma, hypertension. ALLERGIES: None known drug allergies. SUBSTANCE ABUSE HISTORY: No known history of illicit drug use or alcohol. MENTAL STATUS EXAMINATION: The patient is awake, oriented to self. Mood is agitated. Affect is flat. Thought process, there is a paucity of thought content. Thought content, no suicidal or homicidal ideation. Cognition is impaired. Insight and judgment is impaired. ASSESSMENT: Vance I Acute toxic encephalopathy. Vance II Deferred. Vance III COVID-19. Vance IV Moderate. Vance V 20 PLAN: 1. We will continue current psychotropic medication. 2. Seroquel every 8 hours. 3. Haldol p.r.n. 4. Discussed with the nurse. Allergies: Coded Allergies: No Known Allergies (Unverified , 12/03/14) Medication History Scheduled Amino Acids/Protein Hydrolys (Pro-Stat Liquid), 30 ML ORAL TWICE A DAY, (Reported) Aspirin (Aspirin), 81 MG PO DAILY, (Reported) Clonazepam* (Klonopin*), 1 MG ORAL BID, (Reported) Cranberry Fruit Concentrate (Cranberry), 900 MG PO DAILY, (Reported) Divalproex Sodium (Divalproex Sodium), 500 MG PO BID, (Reported) Docusate Sodium* (Colace*), 100 MG ORAL DAILY, (Reported) Enoxaparin Sodium (Enoxaparin Sodium*), 40 MG SUBQ DAILY, (Reported) Folic Acid (Folic Acid), 1 MG PO DAILY, (Reported) Levetiracetam* (Levetiracetam*), 500 MG ORAL TWICE A DAY, (Reported) Mag Hydrox/Al Hydrox/Simeth (Alum-Mag Hydroxide-Simeth Liq), 30 ML PO DAILY, (Reported) Multivitamin With Minerals (Multivitamins With Minerals*), 1 TAB ORAL BID, (Reported) Sennosides (Senna), 17.2 MG PO QHS, (Reported) Scheduled PRN Acetaminophen* (Tylenol Extra Strength*), 1,000 MG ORAL Q6H PRN for Moderate Pain (Pain Scale 4-6), (Reported) Acetaminophen* (Acetaminophen 325MG Tablet*), 650 MG ORAL Q6H PRN for Mild Pain (Pain Scale 1-3), (Reported) Albuterol Sulfate* (Albuterol Sulfate Hhn*), 3 ML [id number] Q6HR PRN for BRONCHOSPASM PPX, (Reported) Bisacodyl (Bisacodyl), 10 MG RC DAILY PRN for Constipation, (Reported) Na Phos,M-B/Na Phos,Di-Ba* (Fleet Enema*), 133 ML RECTAL EVERY OTHER DAY PRN for Constipation, (Reported) Tramadol Hcl* (Ultram*), 50 MG ORAL Q12HR PRN for Severe Pain (Pain Scale 7-10), (Reported) Discontinued Medications Ascorbic Acid* (Vitamin C*), 500 MG ORAL DAILY, (Reported) Discontinued Reason: Therapy completed Cefuroxime Axetil* (Cefuroxime*), 250 MG PO Q12HR Discontinued Reason: Therapy completed Cranberry Fruit Concentrate (Cranberry), 450 MG PO, (Reported) Discontinued Reason: MD discontinued med Magnesium Hydroxide (Milk of Magnesia), 30 ML ORAL DAILY, (Reported) Discontinued Reason: discontinued med Prednisone* (Prednisone*), 10 MG ORAL DAILY Discontinued Reason: discontinued med [fleet oil ], (Reported) Discontinued Reason: Prescription changed Objective Data Height (Feet): 5 Height (Inches): 10.00 Weight (Pounds): 201 Rico Gomes MD May 21, 2020 23:15
[2020-05-22] VITALS: BP 118/76
[2020-05-22 04:00] VITALS: BP 128/72
--- NOTE | 2020-05-22 07:15 | NUR ---
NURSE NOTES: Patient was seen in bed with no acute signs of distress, in semi fowlers position, with SCDs on bilaterally, is on NC 3L of O2, bed was placed in lowest position and locked, bed alarm was set to zone 1 and side rails were up x3.
--- NOTE | 2020-05-22 07:21 | NUR ---
NURSE HAND-OFF REPORT: Important Events on Shift: Patient has been resting well the whole shift and no complaints made. Patient Status: Patient is awake in stable condition. Plan of care endorsed. Diet: Regular, pureed moist, nectar thick liquids and patient can swallow whole pills. Pending Orders: none Pending Results/Labs:none Pending MD notification:none Latest Vital Signs: Temperature 98.1 , Pulse 65 , B/P 128 /72 , Respiratory Rate 24 , O2 SAT 94 , Nasal Cannula, O2 Flow Rate 3.0 . Vital Sign Comment: stable EKG Rhythm: Sinus Rhythm Rhythm change?: N MD Notified?: - MD Response: Latest Prakash Fall Score: 60 Fall Risk: High Risk Safety Measures: Call light Within Reach, Bed Alarm Zone 1, Side Rails Side Rails x2, Bed position Low and Locked. Fall Precautions: Yellow Socks Yellow Gown Door Sign Patient Fall Education Report given to ERNIE Paez
[2020-05-22 08:00] VITALS: BP 117/70
--- NOTE | 2020-05-22 10:51 | Infectious Diseases Prog Note ---
Assessment/Plan Assessment/Plan IMPRESSION: COVID19 disease, CXR: negative Resolved hypoxemia. Pancreatitis, COPD, Hyperlipidemia, Thrombocytopenia. RECOMMENDATIONS: We will continue with ceftriaxone & dexamethasone. If remains stable can be discharged soon Subjective ROS Limited/Unobtainable: Yes Constitutional: Denies: fever Allergies: Coded Allergies: No Known Allergies (Unverified , 12/03/14) Objective Last 24 Hour Vital Signs Date Time Temp Pulse Resp B/P (MAP) Pulse Ox O2 Delivery O2 Flow Rate FiO2 05/22/20 09:00 Room Air 05/22/20 08:00 98.0 54 24 117/70 (86) 95 05/22/20 08:00 53 05/22/20 04:00 98.1 65 24 128/72 (90) 94 05/22/20 04:00 57 05/22/20 00:00 58 05/22/20 00:00 98.6 64 24 118/76 (90) 92 05/21/20 21:00 Nasal Cannula 3.0 05/21/20 20:00 73 05/21/20 20:00 98.6 59 24 106/45 (65) 92 05/21/20 16:00 97.8 63 22 100/64 (76) 92 05/21/20 16:00 61 05/21/20 12:00 66 05/21/20 12:00 97.6 67 22 102/69 (80) 95 Height (Feet): 5 Height (Inches): 10.00 Weight (Pounds): 201 HEENT: mucous membranes moist Respiratory/Chest: lungs clear, other - on room air oxygen Cardiovascular: normal rate Abdomen: soft, non tender Extremities: no edema Neurologic/Psychiatric: alert, responsive Microbiology Date/Time Source Procedure Growth Status 05/21/20 02:55 Urine,Clean Catch Urine Culture - Preliminary NO GROWTH Resulted 05/21/20 00:10 Nasopharynx SARS-CoV-2 RdRp Gene Assay - Final Complete 05/21/20 00:10 Blood Blood Culture - Preliminary NO GROWTH AFTER 24 HOURS Resulted 05/20/20 23:55 Blood Blood Culture - Preliminary NO GROWTH AFTER 24 HOURS Resulted Current Medications Medications (Trade) Dose Ordered Sig/Jeramy Route PRN Reason Start Time Stop Time Status Last Admin Dose Admin Acetaminophen (Tylenol) 650 mg Q4H PRN ORAL pain 05/21/20 09:30 06/20/20 09:29 Barium Sulfate (Varibar Honey) 250 ml NOW PRN MC RAD 05/21/20 09:45 05/24/20 09:34 Barium Sulfate (Varibar [place]) 240 ml NOW PRN MC RAD 05/21/20 09:45 05/24/20 09:34 Barium Sulfate (Varibar Pudding) 230 ml NOW PRN MC RAD 05/21/20 09:45 05/24/20 09:34 Barium Sulfate (Varibar Thin Liquid powder) 148 gm NOW PRN MC RAD 05/21/20 09:45 05/24/20 09:34 Ceftriaxone Sodium 1 gm/ Dextrose 55 ml @ 110 mls/hr Q24H IVPB 05/21/20 21:00 05/28/20 20:59 05/21/20 20:55 Dexamethasone (Decadron) 6 mg DAILY ORAL 05/21/20 12:15 05/30/20 09:01 05/22/20 08:22 Sodium Chloride 1,000 ml @ 60 mls/hr [id number] IV 05/21/20 09:30 06/20/20 09:29 05/21/20 10:02 Pankaj Herrera MD May 22, 2020 10:51
--- NOTE | 2020-05-22 11:03 | Pulmonology Progress Note ---
Subjective ROS Limited/Unobtainable: Yes Interval Events: None new reported Constitutional: Reports: no symptoms; Denies: fever HEENT: Repors: no symptoms Respiratory: Reports: no symptoms Cardiovascular: Reports: no symptoms Gastrointestinal/Abdominal: Reports: no symptoms Genitourinary: Reports: no symptoms Allergies: Coded Allergies: No Known Allergies (Unverified , 12/03/14) Objective Last 24 Hour Vital Signs Date Time Temp Pulse Resp B/P (MAP) Pulse Ox O2 Delivery O2 Flow Rate FiO2 05/22/20 09:00 Room Air 05/22/20 08:00 98.0 54 24 117/70 (86) 95 05/22/20 08:00 53 05/22/20 04:00 98.1 65 24 128/72 (90) 94 05/22/20 04:00 57 05/22/20 00:00 58 05/22/20 00:00 98.6 64 24 118/76 (90) 92 05/21/20 21:00 Nasal Cannula 3.0 05/21/20 20:00 73 05/21/20 20:00 98.6 59 24 106/45 (65) 92 05/21/20 16:00 97.8 63 22 100/64 (76) 92 05/21/20 16:00 61 05/21/20 12:00 66 05/21/20 12:00 97.6 67 22 102/69 (80) 95 Intake and Output 05/21/20 05/22/20 19:00 07:00 Intake Total 800 ml Output Total 500 ml 1300 ml Balance -500 ml -500 ml Intake Oral 800 ml Output Urine Total 500 ml 1300 ml # Voids 1 4 General Appearance: no acute distress HEENT: normocephalic Respiratory: chest wall non-tender, lungs clear Cardiovascular: normal peripheral pulses, normal rate Abdomen: normal bowel sounds Extremities: no cyanosis Microbiology Date/Time Source Procedure Growth Status 05/21/20 02:55 Urine,Clean Catch Urine Culture - Preliminary NO GROWTH Resulted 05/21/20 00:10 Nasopharynx SARS-CoV-2 RdRp Gene Assay - Final Complete 05/21/20 00:10 Blood Blood Culture - Preliminary NO GROWTH AFTER 24 HOURS Resulted 05/20/20 23:55 Blood Blood Culture - Preliminary NO GROWTH AFTER 24 HOURS Resulted Current Medications Medications (Trade) Dose Ordered Sig/Jeramy Route PRN Reason Start Time Stop Time Status Last Admin Dose Admin Acetaminophen (Tylenol) 650 mg Q4H PRN ORAL pain 05/21/20 09:30 06/20/20 09:29 Barium Sulfate (Varibar Honey) 250 ml NOW PRN RAD 05/21/20 09:45 05/24/20 09:34 Barium Sulfate (Varibar [place]) 240 ml NOW PRN RAD 05/21/20 09:45 05/24/20 09:34 Barium Sulfate (Varibar Pudding) 230 ml NOW PRN RAD 05/21/20 09:45 05/24/20 09:34 Barium Sulfate (Varibar Thin Liquid powder) 148 gm NOW PRN RAD 05/21/20 09:45 05/24/20 09:34 Ceftriaxone Sodium 1 gm/ Dextrose 55 ml @ 110 mls/hr Q24H IVPB 05/21/20 21:00 05/28/20 20:59 05/21/20 20:55 Dexamethasone (Decadron) 6 mg DAILY ORAL 05/21/20 12:15 05/30/20 09:01 05/22/20 08:22 Sodium Chloride 1,000 ml @ 60 mls/hr [id number] IV 05/21/20 09:30 06/20/20 09:29 05/21/20 10:02 Assessment/Plan Assessment/Plan IMPRESSION: 1. COVID-19 pneumonia. 2. Borderline hypoxemia. 3. Seizure disorder. 4. prison resident. 5. Psych disorder. DISCUSSION: Admit to the hospital. Agree with admission and care. No longer on supplemental oxygen. Continue Decadron, Defer remdesivir to ID specialist. I will follow carefully. Colin Da Silva Omar Syed MD May 22, 2020 11:02
--- NOTE | 2020-05-22 11:25 | NUR ---
CASE MANAGEMENT:REVIEW 59 YR OLD MALE BIBA FROM [facility] CC: FLU LIKE SYMPTOMS AND FEVER OF 102 SI: COVID INFECTION 99.0 80 20 128/75 92% ON RA WBC-3.8 H/H-12.5/38.1 PLT-108 LIPASE+1624 IS: PLACED ON 3L/NC IV AZITHROMYCIN IV ROCEPHIN 1L NS BOLUS IV ATIVAN CXR BLOOD CX : TO TELEMETRY DCP: FROM SNF
[2020-05-22 12:00] VITALS: BP 112/70
[2020-05-22] MEDS ORDERED: cefTRIAXone 1 GM in D5W 55 ML IVPB SCH (13:00)
[2020-05-22 16:00] VITALS: BP 115/65
--- NOTE | 2020-05-22 18:49 | NUR ---
NURSE HAND-OFF REPORT: Important Events on Shift:[IV fluids, patient on NC 2L] Patient Status: [stable, full code] Diet: [Regular pure moist thick liquids] Pending Orders: [N/A] Pending Results/Labs:[VRE pending] Pending MD notification:[N/A] Latest Vital Signs: Temperature 97.9 , Pulse 68 , B/P 115 /65 , Respiratory Rate 24 , O2 SAT 94 , Nasal Cannula, O2 Flow Rate 2.0 . Vital Sign Comment: [] EKG Rhythm: Sinus Rhythm Rhythm change?: N MD Notified?: - MD Response: Latest Prakash Fall Score: 60 Fall Risk: High Risk Safety Measures: Call light Within Reach, Bed Alarm Zone 1, Side Rails Side Rails x3, Bed position Low and Locked. Fall Precautions: Yellow Socks Yellow Gown Door Sign Patient Fall Education Report given to [ERNIE Vargas].
[2020-05-22] MEDS ORDERED: ACETAMINOPHEN325 M1 ORAL (19:10)
[2020-05-22] MEDS ORDERED: PRO-STAT LIQUID30 ML ORAL (19:10)
[2020-05-22] MEDS ORDERED: DIVALPROEX SOD500 MG PO (19:10)
[2020-05-22] MEDS ORDERED: FLEET ENEMA133 ML RECTAL (19:10)
[2020-05-22] MEDS ORDERED: SENNA8.6 M2 PO (19:10)
--- NOTE | 2020-05-22 19:10 | NUR ---
NURSE NOTES: Pt received from ERNIE Paez. Pt is resting comfortably in bed and denies any pain; pt is on seizure precautions. Pt is bedbound and A/Ox1; pt is not agitated. Pt is on cardiac monitoring SR and asymptomatic. Pt is on NC 2LPM non-compliant and sating well with the oxygen device on. Pt has RHand 20G running 1/3EC67ta/hr patent with skin dry and intact. Bed is locked in lowest position with call light within reach. Will continue to monitor.
[2020-05-22 20:00] VITALS: BP 116/66
[2020-05-22] MEDS: cefTRIAXone 1 GM in D5W 55 ML IVPB SCH (20:15)
[2020-05-22] MEDS ORDERED: Haloperidol 5mg/ml Inj IM PRN (21:00)
--- NOTE | 2020-05-22 21:08 | General Progress Note ---
Subjective ROS Limited/Unobtainable: Yes Allergies: Coded Allergies: No Known Allergies (Unverified , 12/03/14) Objective Last 24 Hour Vital Signs Date Time Temp Pulse Resp B/P (MAP) Pulse Ox O2 Delivery O2 Flow Rate FiO2 05/22/20 16:00 68 05/22/20 16:00 97.9 66 24 115/65 (82) 94 05/22/20 12:00 69 05/22/20 12:00 98.2 74 22 112/70 (84) 94 05/22/20 09:00 Nasal Cannula 2.0 05/22/20 08:00 98.0 54 24 117/70 (86) 95 05/22/20 08:00 53 05/22/20 04:00 98.1 65 24 128/72 (90) 94 05/22/20 04:00 57 05/22/20 00:00 58 05/22/20 00:00 98.6 64 24 118/76 (90) 92 Intake and Output 05/21/20 05/22/20 19:00 07:00 Intake Total 860 ml Output Total 500 ml 1300 ml Balance -500 ml -440 ml Intake Oral 800 ml IV Total 60 ml Output Urine Total 500 ml 1300 ml # Voids 1 4 Height (Feet): 5 Height (Inches): 10.00 Weight (Pounds): 201 Assessment/Plan Problem List: (1) Suspected 2019 novel coronavirus infection ICD Codes: Z20.828 - Contact with and (suspected) exposure to other viral communicable diseases SNOMED: 250165385 (2) Former cigarette smoker (3) Sepsis ICD Codes: A41.9 - Sepsis, unspecified organism SNOMED: 28482584 Status: progressing Assessment/Plan: covid pna resp insuff prn supportive rx afebrile reviewed chart Dick Phillips MD May 22, 2020 21:08
--- NOTE | 2020-05-22 21:31 | Consultation ---
DATE OF CONSULTATION: 05/22/2020 This is a 59-year-old male with a history of seizure, GERD, COPD, asthma, psychotic disorder, hypertension, who is well known to me from the half-way. The patient is admitted for COVID. He is COVID positive, presents with anxiety, hopelessness, psychotic, and disorganized speech and behavior. PAST PSYCHIATRIC HISTORY: Schizophrenia, anxiety disorder. PAST MEDICAL HISTORY: GERD, seizure, COPD, asthma, hypertension. ALLERGIES: None known drug allergies. SUBSTANCE ABUSE HISTORY: No known history of illicit drug use or alcohol. MENTAL STATUS EXAMINATION: The patient is awake, oriented to self. Mood is agitated. Affect is flat. Thought process, there is a paucity of thought content. Thought content, no suicidal or homicidal ideation. Cognition is impaired. Insight and judgment is impaired. ASSESSMENT: [place] I Acute toxic encephalopathy. [place] II Deferred. [place] III COVID-19. [place] IV Moderate. [place] V 20 PLAN: 1. We will continue current psychotropic medication. 2. Seroquel every 8 hours. 3. Hall p.r.n. 4. Discussed with the nurse. Rico Gomes M.D. DR: ROSMERY JOB#: [id number] CC:
[2020-05-23] VITALS: BP 2/65
[2020-05-23 04:00] VITALS: BP 121/70
--- NOTE | 2020-05-23 07:23 | NUR ---
NURSE HAND-OFF REPORT: Important Events on Shift:Pt D/C IV Patient Status: Stable Diet: Regular nectar thick pureed Pending Orders: Pending Results/Labs: Pending MD notification: Latest Vital Signs: Temperature 98.1 , Pulse 60 , B/P 121 /70 , Respiratory Rate 21 , O2 SAT 21 , Nasal Cannula, O2 Flow Rate 2.0 . Vital Sign Comment: VSS EKG Rhythm: Sinus Rhythm Rhythm change?: N MD Notified?: - MD Response: Latest Prakash Fall Score: 60 Fall Risk: High Risk Safety Measures: Call light Within Reach, Bed Alarm Zone 1, Side Rails Side Rails x3, Bed position Low and Locked. Fall Precautions: Yellow Socks Yellow Gown Door Sign Patient Fall Education Report given to ERNIE Lee.
--- NOTE | 2020-05-23 07:43 | NUR ---
NURSE NOTES: Report received from ERNIE joseph. The patient was seen in bed stable, asleep with no acute signs of distress on 2L nasal cannula. The patients bed was placed in the lowest position and locked, The side rails are placed x3, bed alarm is in zone 1 and call light within reach.
[2020-05-23 08:00] VITALS: BP 121/74
--- NOTE | 2020-05-23 08:48 | NUR ---
CASE MANAGEMENT:REVIEW 05/23/20 SI: COVID PNA 99.5 82 18 121/70 98% ON 2L/NC IS: IV ROCEPHIN Q24 DECADRON PO QD IVF@60/HR SEROQUEL PO Q8HRS : TELEMETRY STATUS DCP: FROM [facility]
--- NOTE | 2020-05-23 11:16 | NUR ---
NURSE NOTES: Patient was transferred to ERNIE messina. Room 406-1. The patient was stable with no acute signs of distress and on 2L nasal cannula. The patients bed was placed in lowest position, side rails were placed x2, bed alarm was set to zone 1 and call light within reach.
--- NOTE | 2020-05-23 11:17 | NUR ---
NURSE NOTES: Report received from Papito RN. Patient seen in bed VS is stable, AAOx1, on NC 2L/M, and on bed rest. IV site patent and intact. Patients breathing is even with no acute signs of distress on 2L nasal cannula. Patients belongings signed and check with RNs. Patient has bialteral SCD devices on. Isolation precaution maintained The patients bed was placed in the lowest position and locked, The side rails are placed x3, bed alarm is in zone 1 and call light within reach.
--- NOTE | 2020-05-23 11:35 | Infectious Diseases Prog Note ---
Assessment/Plan Assessment/Plan IMPRESSION: COVID19 disease, CXR: negative Resolved hypoxemia. Pancreatitis, COPD, Hyperlipidemia, Thrombocytopenia. RECOMMENDATIONS: Discontinue ceftriaxone Continue dexamethasone. If remains stable can be discharged soon Subjective ROS Limited/Unobtainable: Yes Constitutional: Denies: fever Allergies: Coded Allergies: No Known Allergies (Unverified , 12/03/14) Objective Last 24 Hour Vital Signs Date Time Temp Pulse Resp B/P (MAP) Pulse Ox O2 Delivery O2 Flow Rate FiO2 05/23/20 09:00 Nasal Cannula 2.0 05/23/20 08:00 65 05/23/20 08:00 97.7 64 22 121/74 (90) 95 05/23/20 04:00 60 05/23/20 04:00 98.1 53 21 121/70 (87) 21 05/23/20 00:00 64 05/23/20 00:00 99.5 92 18 2/65 (44) 98 05/22/20 21:00 Nasal Cannula 2.0 05/22/20 20:00 97.1 62 22 116/66 (83) 94 05/22/20 20:00 77 05/22/20 16:00 68 05/22/20 16:00 97.9 66 24 115/65 (82) 94 05/22/20 12:00 69 05/22/20 12:00 98.2 74 22 112/70 (84) 94 Height (Feet): 5 Height (Inches): 10.00 Weight (Pounds): 201 HEENT: mucous membranes moist Respiratory/Chest: lungs clear, other - oxygen by nasal cannula Cardiovascular: normal rate Abdomen: soft, non tender Extremities: no edema Neurologic/Psychiatric: alert, responsive Microbiology Date/Time Source Procedure Growth Status 05/21/20 02:55 Urine,Clean Catch Urine Culture - Preliminary NO GROWTH AFTER 24 HOURS Resulted 05/21/20 01:05 Rectum - Final NO CARBAPENEM-RESISTANT ENTEROBACTERI... Complete 05/21/20 01:05 Rectum VRE Culture - Final NO VANCOMYCIN RESISTANT ENTEROCOCCUS ... Complete 05/21/20 01:05 Nasal Nares MRSA Culture - Final NO METHICILLIN RESISTANT STAPH AUREUS... Complete 05/21/20 00:10 Nasopharynx SARS-CoV-2 RdRp Gene Assay - Final Complete 05/21/20 00:10 Blood Blood Culture - Preliminary NO GROWTH AFTER 24 HOURS Resulted 05/20/20 23:55 Blood Blood Culture - Preliminary NO GROWTH AFTER 24 HOURS Resulted Current Medications Medications (Trade) Dose Ordered Sig/Jeramy Route PRN Reason Start Time Stop Time Status Last Admin Dose Admin Acetaminophen (Tylenol) 650 mg Q4H PRN ORAL pain 05/21/20 09:30 06/20/20 09:29 Barium Sulfate (Varibar Honey) 250 ml NOW PRN MC RAD 05/21/20 09:45 05/24/20 09:34 Barium Sulfate (Varibar [place]) 240 ml NOW PRN MC RAD 05/21/20 09:45 05/24/20 09:34 Barium Sulfate (Varibar [place]ud[place]) 230 ml NOW PRN MC RAD 05/21/20 09:45 05/24/20 09:34 Barium Sulfate (Varibar Thin Liquid powder) 148 gm NOW PRN MC RAD 05/21/20 09:45 05/24/20 09:34 Ceftriaxone Sodium 1 gm/ Dextrose 55 ml @ 110 mls/hr Q24H IVPB 05/21/20 21:00 05/28/20 20:59 05/22/20 20:15 Dexamethasone (Decadron) 6 mg DAILY ORAL 05/21/20 12:15 05/30/20 09:01 05/23/20 09:30 Haloperidol Lactate (Haldol) 5 mg Q6H PRN IM Agitation 05/22/20 21:00 07/06/20 20:59 Quetiapine Fumarate (SEROqueL) 50 mg EVERY 8 HOURS ORAL 05/22/20 22:00 07/06/20 21:59 05/23/20 06:09 Sodium Chloride 1,000 ml @ 60 mls/hr [id number] IV 05/21/20 09:30 06/20/20 09:29 05/23/20 11:21 Pankaj Herrera MD May 23, 2020 11:35
[2020-05-23 12:00] VITALS: BP 120/70
--- NOTE | 2020-05-23 12:56 | Cardiology Report ---
APPROVED REPORT EKG Measurement Heart [id number] <Conclusion> Normal sinus rhythm Left axis deviation Low voltage QRS Inferior infarct, age undetermined Cannot rule out Anterior infarct, age undetermined Abnormal ECG
--- NOTE | 2020-05-23 14:46 | Pulmonology Progress Note ---
Subjective ROS Limited/Unobtainable: Yes Interval Events: None new reported Constitutional: Denies: fever HEENT: Repors: no symptoms Respiratory: Reports: no symptoms Cardiovascular: Reports: no symptoms Gastrointestinal/Abdominal: Reports: no symptoms Genitourinary: Reports: no symptoms Allergies: Coded Allergies: No Known Allergies (Unverified , 12/03/14) Objective Last 24 Hour Vital Signs Date Time Temp Pulse Resp B/P (MAP) Pulse Ox O2 Delivery O2 Flow Rate FiO2 05/23/20 12:00 97.6 72 21 120/70 (87) 94 05/23/20 09:00 Nasal Cannula 2.0 05/23/20 08:00 65 05/23/20 08:00 97.7 64 22 121/74 (90) 95 05/23/20 04:00 60 05/23/20 04:00 98.1 53 21 121/70 (87) 21 05/23/20 00:00 64 05/23/20 00:00 99.5 92 18 2/65 (44) 98 05/22/20 21:00 Nasal Cannula 2.0 05/22/20 20:00 97.1 62 22 116/66 (83) 94 05/22/20 20:00 77 05/22/20 16:00 68 05/22/20 16:00 97.9 66 24 115/65 (82) 94 Intake and Output 05/22/20 05/23/20 18:59 06:59 Intake Total 360 ml 720 ml Output Total 250 ml Balance 110 ml 720 ml Intake Oral 120 ml 720 ml IV Total 240 ml Output Urine Total 250 ml # Voids 3 2 Objective 05/23/2020 alert; disorganized speech General Appearance: no acute distress HEENT: normocephalic Respiratory: chest wall non-tender, lungs clear Cardiovascular: normal peripheral pulses, normal rate Abdomen: normal bowel sounds Extremities: no cyanosis, no edema Microbiology Date/Time Source Procedure Growth Status 05/21/20 02:55 Urine,Clean Catch Urine Culture - Preliminary NO GROWTH AFTER 24 HOURS Resulted 05/21/20 01:05 Rectum - Final NO CARBAPENEM-RESISTANT ENTEROBACTERI... Complete 05/21/20 01:05 Rectum VRE Culture - Final NO VANCOMYCIN RESISTANT ENTEROCOCCUS ... Complete 05/21/20 01:05 Nasal Nares MRSA Culture - Final NO METHICILLIN RESISTANT STAPH AUREUS... Complete 05/21/20 00:10 Nasopharynx SARS-CoV-2 RdRp Gene Assay - Final Complete 05/21/20 00:10 Blood Blood Culture - Preliminary NO GROWTH AFTER 24 HOURS Resulted 05/20/20 23:55 Blood Blood Culture - Preliminary NO GROWTH AFTER 24 HOURS Resulted Current Medications Medications (Trade) Dose Ordered Sig/Jeramy Route PRN Reason Start Time Stop Time Status Last Admin Dose Admin Acetaminophen (Tylenol) 650 mg Q4H PRN ORAL pain 05/21/20 09:30 06/20/20 09:29 Barium Sulfate (Varibar Honey) 250 ml NOW PRN RAD 05/21/20 09:45 05/24/20 09:34 Barium Sulfate (Varibar [place]) 240 ml NOW PRN RAD 05/21/20 09:45 05/24/20 09:34 Barium Sulfate (Varibar [place]ud[place]) 230 ml NOW PRN RAD 05/21/20 09:45 05/24/20 09:34 Barium Sulfate (Varibar Thin Liquid powder) 148 gm NOW PRN RAD 05/21/20 09:45 05/24/20 09:34 Dexamethasone (Decadron) 6 mg DAILY ORAL 05/21/20 12:15 05/30/20 09:01 05/23/20 09:30 Haloperidol Lactate (Haldol) 5 mg Q6H PRN IM Agitation 05/22/20 21:00 07/06/20 20:59 Quetiapine Fumarate (SEROqueL) 50 mg EVERY 8 HOURS ORAL 05/22/20 22:00 07/06/20 21:59 05/23/20 13:07 Sodium Chloride 1,000 ml @ 60 mls/hr [id number] IV 05/21/20 09:30 06/20/20 09:29 05/23/20 11:21 Assessment/Plan Assessment/Plan 1. COVID-19 pneumonia. - 05/20/2020 CXR No acute process - s/p ceftriaxone, cont dexamethasone per ID - defer use of remdesivir to ID - if remains stable, dc per ID 2. Borderline hypoxemia. - improvin% on 2 lpm NC 3. Seizure disorder. 4. alf resident. 5. Psych disorder. - on Quetiapine The care for this patient was discussed with my supervising physician Seen and examined by Dr. Barajas as well Time spent for this case was approximately 31 minutes Sudeep Ventura May 23, 2020 14:46
[2020-05-23 16:00] VITALS: BP 114/75
--- NOTE | 2020-05-23 19:29 | NUR ---
NURSE HAND-OFF: Important Events on Shift: Transfer from tele Patient Status: stable Diet: regular pureed moist Pending Orders: n/a Pending Results/Labs:n/a Pending MD notification:n/a Latest Vital Signs: Temperature 97.9 , Pulse 66 , B/P 114 /75 , Respiratory Rate 20 , O2 SAT 94 , Nasal Cannula, O2 Flow Rate 2.0 . Vital Sign Comment: stable Latest Prakash Fall Score: 60 Fall Risk: High Risk Safety Measures: Call light Within Reach, Bed Alarm Zone 1, Side Rails Side Rails x2, Bed position Low and Locked. Fall Precautions: Yellow Socks Yellow Gown Door Sign Patient Fall Education Report given to ERNIE Eddy.
[2020-05-23 20:00] VITALS: BP 117/76
--- NOTE | 2020-05-23 20:00 | NUR ---
NURSE NOTES: RECEIVED PATIENT LYING IN BED, AWAKE, ORIENTED TO SELF, ALL NEEDS ANTICIPATED AND MET BY NURSING STAFF. HEAD OF BED ELEVATED TO FACILITATE BREATHING, NO SIGNS AND SYMPTOMS OF ACUTE CARDIO RESPIRATORY DISTRESS/SHORTNESS OF BREATH, NO PERIPHERAL EDEMA NOTED. IV INTACT TO RIGHT FOREARM/GAUGE 22, IV FLUIDS ONGOING 1/2 NS AT 60ML/HOUR, NO REDNESS/SWELLING NOTED TO SITE. NO REPORT OF GI DISCOMFORT/DISTRESS, NO N/V/D. COMFORT CARE PROVIDED. SIDE RAILS UP X3/BED IN LOWEST POSITION FOR SAFETY, FREQUENT ROUNDING FOR SAFETY/NEEDS. CONTINUE WITH CURRENT PLAN OF CARE. NAD.
--- NOTE | 2020-05-23 20:12 | Psychiatric Progress Note ---
Psychiatry Progress Note Psychiatry Progress Note Medications Current Medications Medications (Trade) Dose Ordered Sig/Jeramy Route PRN Reason Start Time Stop Time Status Last Admin Dose Admin Acetaminophen (Tylenol) 650 mg Q4H PRN ORAL pain 05/21/20 09:30 06/20/20 09:29 Barium Sulfate (Varibar Honey) 250 ml NOW PRN RAD 05/21/20 09:45 05/24/20 09:34 Barium Sulfate (Varibar [place]) 240 ml NOW PRN RAD 05/21/20 09:45 05/24/20 09:34 Barium Sulfate (Varibar Pudding) 230 ml NOW PRN RAD 05/21/20 09:45 05/24/20 09:34 Barium Sulfate (Varibar Thin Liquid powder) 148 gm NOW PRN RAD 05/21/20 09:45 05/24/20 09:34 Dexamethasone (Decadron) 6 mg DAILY ORAL 05/21/20 12:15 05/30/20 09:01 05/23/20 09:30 Haloperidol Lactate (Haldol) 5 mg Q6H PRN IM Agitation 05/22/20 21:00 07/06/20 20:59 Quetiapine Fumarate (SEROqueL) 50 mg EVERY 8 HOURS ORAL 05/22/20 22:00 07/06/20 21:59 05/23/20 13:07 Sodium Chloride 1,000 ml @ 60 mls/hr [id number] IV 05/21/20 09:30 06/20/20 09:29 05/23/20 11:21 Neurological/Psychiatric: Reports: anxiety, depressed, emotional problems Allergies: Coded Allergies: No Known Allergies (Unverified , 12/03/14) Objective Data Height (Feet): 5 Height (Inches): 10.00 Weight (Pounds): 201 Additional Comments: MENTAL STATUS EXAMINATION: The patient is awake, oriented to self. Mood is agitated. Affect is flat. Thought process, there is a paucity of thought content. Thought content, no suicidal or homicidal ideation. Cognition is impaired. Insight and judgment is impaired. ASSESSMENT: [place] I Acute toxic encephalopathy. [place] II Deferred. [place] III COVID-19. [place] IV Moderate. [place] V 20 PLAN: 1. We will continue current psychotropic medication. 2. Seroquel every 8 hours. 3. Haldol p.r.n. 4. Discussed with the nurse. Assessment/Plan Status: progressing Rico Gomes MD May 23, 2020 20:12
--- NOTE | 2020-05-23 21:39 | General Progress Note ---
Subjective ROS Limited/Unobtainable: Yes Allergies: Coded Allergies: No Known Allergies (Unverified , 12/03/14) Objective Last 24 Hour Vital Signs Date Time Temp Pulse Resp B/P (MAP) Pulse Ox O2 Delivery O2 Flow Rate FiO2 05/23/20 16:00 97.9 66 20 114/75 (88) 94 05/23/20 12:00 97.6 72 21 120/70 (87) 94 05/23/20 09:00 Nasal Cannula 2.0 05/23/20 08:00 65 05/23/20 08:00 97.7 64 22 121/74 (90) 95 05/23/20 04:00 60 05/23/20 04:00 98.1 53 21 121/70 (87) 21 05/23/20 00:00 64 05/23/20 00:00 99.5 92 18 2/65 (44) 98 Intake and Output 05/22/20 05/23/20 19:00 07:00 Intake Total 300 ml 720 ml Output Total 250 ml Balance 50 ml 720 ml Intake Oral 120 ml 720 ml IV Total 180 ml Output Urine Total 250 ml # Voids 3 2 Height (Feet): 5 Height (Inches): 10.00 Weight (Pounds): 201 Assessment/Plan Problem List: (1) Suspected 2019 novel coronavirus infection ICD Codes: Z20.828 - Contact with and (suspected) exposure to other viral communicable diseases SNOMED: 325745981 (2) Former cigarette smoker (3) Sepsis ICD Codes: A41.9 - Sepsis, unspecified organism SNOMED: 30633121 Status: progressing Assessment/Plan: covid pna resp insuff afebrile no change reviewed chart Dick Phillips MD May 23, 2020 21:39
[2020-05-24] VITALS: BP 119/80
[2020-05-24 04:00] VITALS: BP 116/58
--- NOTE | 2020-05-24 07:30 | NUR ---
NURSE NOTES: Patient is in bed awake and cursing at staff. Patient instructed to use call light for assistance, reinforcement needed. Condom catheter noted. All safety measures provided. Patient is in bed in locked and lowest position with call light within reach. All needs met at this time. Will continue to monitor.
[2020-05-24 08:00] VITALS: BP 128/77
--- NOTE | 2020-05-24 08:00 | NUR ---
NURSE HAND-OFF: Important Events on Shift:[NO SIGNIFICANT CHANGE OF CONDITION, NAD] Patient Status: [STABLE] Diet: [REGULAR PUREED MOIST] Pending Orders: [CHEST XRAY 05/24] Pending Results/Labs:[N/A] Pending MD notification:[N/A] Latest Vital Signs: Temperature 98.6 , Pulse 50 , B/P 116 /58 , Respiratory Rate 18 , O2 SAT 95 , Nasal Cannula, O2 Flow Rate 2.0 . Vital Sign Comment: [STABLE, AFEBRILE] Latest Prakash Fall Score: 60 Fall Risk: High Risk Safety Measures: Call light Within Reach, Bed Alarm Zone 1, Side Rails Side Rails x2, Bed position Low and Locked. Fall Precautions: Yellow Socks Yellow Gown Door Sign Patient Fall Education Report given to [ERNIE ARIAS].
--- NOTE | 2020-05-24 08:35 | Diagnostic Imaging Report ---
EXAM: XR Chest, 1 View CLINICAL HISTORY: INFECT TECHNIQUE: Frontal view of the chest. COMPARISON: Chest x-rays dated 05/21/20 FINDINGS: Lungs: Decreased lung volumes, likely related to shallow inspiration. Mildly increased interstitial markings, greater in the left lung. Pleural space: Unremarkable. The costophrenic angles are sharp. No visible pneumothorax. Heart: Unremarkable. No cardiomegaly. Mediastinum: Unremarkable. Bones/joints: Unremarkable. Vasculature: Atherosclerotic calcifications are noted within the aortic arch. IMPRESSION: 1. Decreased lung volumes, likely related to shallow inspiration. 2. Mildly increased interstitial markings, greater in the left lung. This may be related to bronchovascular crowding from the shallow aspiration versus a pneumonitis.
[2020-05-24] MEDS ORDERED: 1/2 NS 1000ml IV ONE (09:13)
--- NOTE | 2020-05-24 09:20 | Pulmonology Progress Note ---
Subjective ROS Limited/Unobtainable: Yes Interval Events: None new reported Constitutional: Denies: fever HEENT: Repors: no symptoms Respiratory: Reports: no symptoms Cardiovascular: Reports: no symptoms Gastrointestinal/Abdominal: Reports: no symptoms Genitourinary: Reports: no symptoms Allergies: Coded Allergies: No Known Allergies (Unverified , 12/03/14) Objective Last 24 Hour Vital Signs Date Time Temp Pulse Resp B/P (MAP) Pulse Ox O2 Delivery O2 Flow Rate FiO2 05/24/20 04:00 98.6 50 18 116/58 (77) 95 05/24/20 00:00 98.6 78 20 119/80 (93) 95 05/23/20 21:00 Nasal Cannula 2.0 05/23/20 20:00 98.9 89 18 117/76 (90) 95 05/23/20 16:00 97.9 66 20 114/75 (88) 94 05/23/20 12:00 97.6 72 21 120/70 (87) 94 Intake and Output 05/23/20 05/24/20 19:00 07:00 Intake Total 540 ml 660 ml Output Total 900 ml Balance 540 ml -240 ml Intake Oral 480 ml IV Total 60 ml 660 ml Output Urine Total 900 ml # Voids 3 1 # Bowel Movements 1 Objective 05/24/2020 agitated 05/23/2020 alert; disorganized speech General Appearance: no acute distress HEENT: normocephalic Respiratory: chest wall non-tender, decreased breath sounds Cardiovascular: normal peripheral pulses, normal rate Abdomen: normal bowel sounds Extremities: no cyanosis, no edema Neurologic: other - tremor Current Medications Medications (Trade) Dose Ordered Sig/Jeramy Route PRN Reason Start Time Stop Time Status Last Admin Dose Admin Acetaminophen (Tylenol) 650 mg Q4H PRN ORAL pain 05/21/20 09:30 06/20/20 09:29 Barium Sulfate (Varibar Honey) 250 ml NOW PRN MC RAD 05/21/20 09:45 05/24/20 09:34 Barium Sulfate (Varibar [place]) 240 ml NOW PRN MC RAD 05/21/20 09:45 05/24/20 09:34 Barium Sulfate (Varibar Pudding) 230 ml NOW PRN MC RAD 05/21/20 09:45 05/24/20 09:34 Barium Sulfate (Varibar Thin Liquid powder) 148 gm NOW PRN MC RAD 05/21/20 09:45 05/24/20 09:34 Dexamethasone (Decadron) 6 mg DAILY ORAL 05/21/20 12:15 05/30/20 09:01 05/24/20 08:41 Haloperidol Lactate (Haldol) 5 mg Q6H PRN IM Agitation 05/22/20 21:00 07/06/20 20:59 Quetiapine Fumarate (SEROqueL) 50 mg EVERY 8 HOURS ORAL 05/22/20 22:00 07/06/20 21:59 05/24/20 05:51 Sodium Chloride 1,000 ml @ 60 mls/hr [id number] IV 05/21/20 09:30 06/20/20 09:29 05/24/20 03:21 Assessment/Plan Assessment/Plan 1. COVID-19 pneumonia. - 05/20/2020 CXR No acute process - 05/24/2020 CXR decreased lung volumes likely secondary to suboptimal inspiration - s/p ceftriaxone, cont dexamethasone per ID - defer use of remdesivir to ID - if remains stable, dc per ID 2. Borderline hypoxemia. - improvin% on 2 lpm NC 3. Seizure disorder. 4. [facility] resident. 5. Psych disorder. - on Quetiapine The care for this patient was discussed with my supervising physician Seen and examined by Dr. Barajas as well Time spent for this case was approximately 31 minutes Sudeep Ventura May 24, 2020 09:20
[2020-05-24 12:00] VITALS: BP 118/69
--- NOTE | 2020-05-24 14:39 | NUR ---
CASE MANAGEMENT:REVIEW SI;COVID PNEUMONIA. SEPSIS. 98.6 50 20 128/77 92% 2L NC IS;IVF NS @ 60 ML/HR DECADRON PO QD SEROQUEL PO Q8 MED SURG STATUS DCP;FROM [facility]
[2020-05-24 16:00] VITALS: BP 122/75
--- NOTE | 2020-05-24 17:01 | General Progress Note ---
Subjective ROS Limited/Unobtainable: Yes Allergies: Coded Allergies: No Known Allergies (Unverified , 12/03/14) Objective Last 24 Hour Vital Signs Date Time Temp Pulse Resp B/P (MAP) Pulse Ox O2 Delivery O2 Flow Rate FiO2 05/24/20 16:00 97.8 65 18 122/75 (91) 96 05/24/20 12:00 98.0 78 18 118/69 (85) 97 05/24/20 09:00 Nasal Cannula 2.0 05/24/20 08:00 98.8 54 20 128/77 (94) 92 05/24/20 04:00 98.6 50 18 116/58 (77) 95 05/24/20 00:00 98.6 78 20 119/80 (93) 95 05/23/20 21:00 Nasal Cannula 2.0 05/23/20 20:00 98.9 89 18 117/76 (90) 95 Intake and Output 05/23/20 05/24/20 19:00 07:00 Intake Total 540 ml 660 ml Output Total 900 ml Balance 540 ml -240 ml Intake Oral 480 ml IV Total 60 ml 660 ml Output Urine Total 900 ml # Voids 3 1 # Bowel Movements 1 Height (Feet): 5 Height (Inches): 10.00 Weight (Pounds): 201 Assessment/Plan Problem List: (1) Suspected 2019 novel coronavirus infection ICD Codes: Z20.828 - Contact with and (suspected) exposure to other viral communicable diseases SNOMED: 886902654 (2) Former cigarette smoker (3) Sepsis ICD Codes: A41.9 - Sepsis, unspecified organism SNOMED: 69462215 Status: progressing Assessment/Plan: covid pna resp insuff afebrile covid positive pna improivng no wheezing Dick Phillips MD May 24, 2020 17:01
--- NOTE | 2020-05-24 18:50 | NUR ---
NURSE HAND-OFF: Important Events on Shift: chest xray, IV hydration, O2 therapy Patient Status: stable Diet: reg pureed Pending Orders: n/a Pending Results/Labs:n/a Pending MD notification:n/a Latest Vital Signs: Temperature 97.8 , Pulse 65 , B/P 122 /75 , Respiratory Rate 18 , O2 SAT 96 , Nasal Cannula, O2 Flow Rate 2.0 . Vital Sign Comment: n/a Latest Prakash Fall Score: 60 Fall Risk: High Risk Safety Measures: Call light Within Reach, Bed Alarm Zone 1, Side Rails Side Rails x2, Bed position Low and Locked. Fall Precautions: Yellow Socks Yellow Gown Door Sign Patient Fall Education .
--- NOTE | 2020-05-24 19:10 | NUR ---
NURSE NOTES: RECEIVED PATIENT FROM ERNIE ARIAS. PATIENT IS AWAKE, CALM, RESTING IN BED, AAOZX1. PATIENT IS ON NC 2L, NO ACUTE DISTRESS NOTED. NO SEIZURE NOTED. VSS. AFEBRILE. PIV ON RIGHT FA INTACT AND PATENT, RUNNING 1/2 NS AT 60ML/HR. FALL RISK AND SEIZURE PRECAUTIONS IMPLEMENTED. COMMUNICATED WITH STAFF TO PERFORM FREQUENT ROUNDING. YELLOW SOCKS, YELLOW GOWN AND YELLOW ARMBAND IN PLACE. FALL RISK SIGN PRESENT. BED IS LOCKED AND LOW, BED ALARMS ACTIVE, SIDE RAILS UPX2 AND PADDED, CALL LIGHT IS WITHIN REACH. WILL CONTINUE TO MONITOR.
--- NOTE | 2020-05-24 19:24 | NUR ---
HAND-OFF: Report given to Jackie RN.
[2020-05-24 20:00] VITALS: BP 123/69
[2020-05-25] VITALS: BP 127/65
[2020-05-25 04:00] VITALS: BP 125/73
--- NOTE | 2020-05-25 06:40 | NUR ---
NURSE HAND-OFF: Important Events on Shift: VSS, 1 loose BM, still having non-productive cough Patient Status: Stable Diet: Regular, pureed moist, nectar thick. Pending Orders: N/A Pending Results/Labs: N/A Pending MD notification: N/A Latest Vital Signs: Temperature 97.9 , Pulse 61 , B/P 125 /73 , Respiratory Rate 18 , O2 SAT 94 , Nasal Cannula, O2 Flow Rate 2.0 . Vital Sign Comment: Stable Latest Prakash Fall Score: 60 Fall Risk: High Risk Safety Measures: Call light Within Reach, Bed Alarm Zone 1, Side Rails Side Rails x2, Bed position Low and Locked. Fall Precautions: Yellow Socks Yellow Gown Door Sign Patient Fall Education
--- NOTE | 2020-05-25 07:13 | NUR ---
HAND-OFF: Report given to ERNIE Avalos. Patient is stable. Endorsed POC.
--- NOTE | 2020-05-25 07:39 | NUR ---
NURSE NOTES: Patient alert x1; on Nasal cannula 2 Liters, no sing of distress and shortness of breath; patient is coughing; previous tracheostomy noted and open to air; IV Right For-Arm 1/2NS 60cc running; Condom cath in place, collects yellow urine; side rails up x2 and padded for seizure percussion, bed at lowest position, breaks engaged, bed alarm on; call light within reach; will keep monitoring.
[2020-05-25 08:00] VITALS: BP 153/92
[2020-05-25] MEDS ORDERED: 1/2 NS 1000ml IV ONE (09:22)
[2020-05-25] MEDS ORDERED: NS 275ml ONE (09:22)
--- NOTE | 2020-05-25 09:26 | Pulmonology Progress Note ---
Subjective ROS Limited/Unobtainable: Yes Interval Events: None new reported Constitutional: Denies: fever HEENT: Repors: no symptoms Respiratory: Reports: no symptoms Cardiovascular: Reports: no symptoms Gastrointestinal/Abdominal: Reports: no symptoms Genitourinary: Reports: no symptoms Allergies: Coded Allergies: No Known Allergies (Unverified , 12/03/14) Objective Last 24 Hour Vital Signs Date Time Temp Pulse Resp B/P (MAP) Pulse Ox O2 Delivery O2 Flow Rate FiO2 05/25/20 08:00 97.8 65 20 153/92 (112) 95 05/25/20 04:00 97.9 61 18 125/73 (90) 94 05/25/20 00:00 98.2 66 17 127/65 (85) 92 05/24/20 21:00 Nasal Cannula 2.0 05/24/20 20:00 98.1 59 17 123/69 (87) 93 05/24/20 16:00 97.8 65 18 122/75 (91) 96 05/24/20 12:00 98.0 78 18 118/69 (85) 97 Intake and Output 05/24/20 05/25/20 19:00 07:00 Intake Total 1020 ml 420 ml Output Total 1000 ml 1150 ml Balance 20 ml -730 ml Intake Oral 960 ml IV Total 60 ml 420 ml Output Urine Total 1000 ml 1150 ml # Bowel Movements 1 Objective 05/25/2020 repetitive motions of distal upper arms, agitation 05/24/2020 agitated 05/23/2020 alert; disorganized speech General Appearance: no acute distress HEENT: normocephalic Respiratory: chest wall non-tender, decreased breath sounds Cardiovascular: normal peripheral pulses, normal rate Abdomen: normal bowel sounds Genitourinary: other - condom cath Extremities: no cyanosis, no edema Neurologic: other - tremor Current Medications Medications (Trade) Dose Ordered Sig/Jeramy Route PRN Reason Start Time Stop Time Status Last Admin Dose Admin Acetaminophen (Tylenol) 650 mg Q4H PRN ORAL pain 05/21/20 09:30 06/20/20 09:29 Dexamethasone (Decadron) 6 mg DAILY ORAL 05/21/20 12:15 05/30/20 09:01 05/24/20 08:41 Haloperidol Lactate (Haldol) 5 mg Q6H PRN IM Agitation 05/22/20 21:00 07/06/20 20:59 Quetiapine Fumarate (SEROqueL) 50 mg EVERY 8 HOURS ORAL 05/22/20 22:00 07/06/20 21:59 05/24/20 21:26 Sodium Chloride 1,000 ml @ 60 mls/hr [id number] IV 05/21/20 09:30 06/20/20 09:29 05/24/20 21:25 Assessment/Plan Assessment/Plan 1. COVID-19 pneumonia. - 05/20/2020 CXR No acute process - 05/24/2020 CXR decreased lung volumes likely secondary to suboptimal inspiration - s/p ceftriaxone, cont dexamethasone per ID - defer use of remdesivir to ID - if remains stable, dc per ID 2. Borderline hypoxemia. - improvin% on 2 lpm NC 3. Seizure disorder. 4. residential resident. 5. Psych disorder. - on Quetiapine 6. DVT ppx - on SCD - 05/25/2020 tachycardic at 112 bpm: repeat D Dimer is lower than prior The care for this patient was discussed with my supervising physician Seen and examined by Dr. Barajas as well The history of Stevie Dhillon has been reviewed and management options for him have been examined and discussed by Edmundo Barajas. I have personally examined and interviewed the patient. Time spent for this case was approximately 31 minutes Sudeep Ventura May 25, 2020 09:26 Edmundo Barajas MD May 25, 2020 16:49
[2020-05-25 12:00] VITALS: BP 132/79
--- NOTE | 2020-05-25 15:28 | Infectious Diseases Prog Note ---
Assessment/Plan Assessment/Plan IMPRESSION: COVID19 disease, CXR: negative Borderline hypoxemia. Pancreatitis, COPD, Hyperlipidemia, Thrombocytopenia. RECOMMENDATIONS: Continue dexamethasone. Subjective ROS Limited/Unobtainable: Yes Constitutional: Denies: fever Allergies: Coded Allergies: No Known Allergies (Unverified , 12/03/14) Objective Last 24 Hour Vital Signs Date Time Temp Pulse Resp B/P (MAP) Pulse Ox O2 Delivery O2 Flow Rate FiO2 05/25/20 12:00 98.2 55 20 132/79 (96) 95 05/25/20 09:00 Nasal Cannula 2.0 05/25/20 08:00 97.8 65 20 153/92 (112) 95 05/25/20 04:00 97.9 61 18 125/73 (90) 94 05/25/20 00:00 98.2 66 17 127/65 (85) 92 05/24/20 21:00 Nasal Cannula 2.0 05/24/20 20:00 98.1 59 17 123/69 (87) 93 05/24/20 16:00 97.8 65 18 122/75 (91) 96 Height (Feet): 5 Height (Inches): 10.00 Weight (Pounds): 201 HEENT: mucous membranes moist Respiratory/Chest: other - oxygen by nasal cannula Cardiovascular: bradycardia Abdomen: soft, non tender Extremities: no edema Neurologic/Psychiatric: alert, responsive Laboratory Tests Test 05/25/20 11:55 D-Dimer 0.97 mg/L FEU (0.00-0.49) H Current Medications Medications (Trade) Dose Ordered Sig/Jeramy Route PRN Reason Start Time Stop Time Status Last Admin Dose Admin Acetaminophen (Tylenol) 650 mg Q4H PRN ORAL pain 05/21/20 09:30 06/20/20 09:29 Dexamethasone (Decadron) 6 mg DAILY ORAL 05/21/20 12:15 05/30/20 09:01 05/25/20 09:26 Haloperidol Lactate (Haldol) 5 mg Q6H PRN IM Agitation 05/22/20 21:00 07/06/20 20:59 Quetiapine Fumarate (SEROqueL) 50 mg EVERY 8 HOURS ORAL 05/22/20 22:00 07/06/20 21:59 05/25/20 13:08 Sodium Chloride 1,000 ml @ 60 mls/hr [id number] IV 05/21/20 09:30 06/20/20 09:29 05/25/20 13:08 Pankaj Herrera MD May 25, 2020 15:28
[2020-05-25 16:00] VITALS: BP 140/82
--- NOTE | 2020-05-25 19:28 | NUR ---
HAND-OFF: Report given to Zach Wilson.
--- NOTE | 2020-05-25 19:30 | NUR ---
NURSE NOTES: Patient alert x1; on Nasal cannula 2 Liters O2, no distress nor shortness of breath at present, patient is coughing;weak cough, previous tracheostomy noted, yellow thick exudate present, cleansed area and open to air; IV Right forearm patent, asymptomatic running 1/2 NS ml/h, Condom cath in place, yellow urine draining; Bed is locked in lowest position, side rails x3, side rails up x [address], bed alarm on; fall and aspirations precautions maintained, call light is within reach; will continue monitoring patient
[2020-05-25 20:00] VITALS: BP 144/79
--- NOTE | 2020-05-25 21:32 | General Progress Note ---
Subjective ROS Limited/Unobtainable: Yes - l Allergies: Coded Allergies: No Known Allergies (Unverified , 12/03/14) Objective Last 24 Hour Vital Signs Date Time Temp Pulse Resp B/P (MAP) Pulse Ox O2 Delivery O2 Flow Rate FiO2 05/25/20 16:00 98.1 68 18 140/82 (101) 95 05/25/20 12:00 98.2 55 20 132/79 (96) 95 05/25/20 09:00 Nasal Cannula 2.0 05/25/20 08:00 97.8 65 20 153/92 (112) 95 05/25/20 04:00 97.9 61 18 125/73 (90) 94 05/25/20 00:00 98.2 66 17 127/65 (85) 92 Intake and Output 05/24/20 05/25/20 19:00 07:00 Intake Total 1020 ml 480 ml Output Total 1000 ml 1150 ml Balance 20 ml -670 ml Intake Oral 960 ml IV Total 60 ml 480 ml Output Urine Total 1000 ml 1150 ml # Bowel Movements 1 Laboratory Tests 05/25/20 11:55: D-Dimer 0.97H Height (Feet): 5 Height (Inches): 10.00 Weight (Pounds): 201 Assessment/Plan Problem List: (1) Suspected 2019 novel coronavirus infection ICD Codes: Z20.828 - Contact with and (suspected) exposure to other viral communicable diseases SNOMED: 591356792 (2) Former cigarette smoker (3) Sepsis ICD Codes: A41.9 - Sepsis, unspecified organism SNOMED: [id number] Status: progressing Assessment/Plan: prn supportive rx dc planning covid positive pna Dick Phillips MD May 25, 2020 21:32
[2020-05-26] VITALS: BP 130/74
[2020-05-26 03:57] VITALS: BP 135/77
--- NOTE | 2020-05-26 07:36 | NUR ---
NURSE HAND-OFF: Important Events on Shift: VSS, 1 small soft BM, still having non-productive cough Patient Status: Stable but bradycardic overnight 49 bpm lowest Diet: Regular, pureed moist, nectar thick liquids, assist to feed, aspiration precautions Pending Orders: cbc bmp Pending Results/Labs: cbc bmp Pending MD notification: - Latest Vital Signs: Temperature 97.9 , Pulse 61 , B/P 125 /73 , Respiratory Rate 18 , O2 SAT 94 , Nasal Cannula, O2 Flow Rate 2.0 . Vital Sign Comment: Stable Latest Prakash Fall Score: 60 Fall Risk: High Risk Safety Measures: Call light Within Reach, Bed Alarm Zone 1, Side Rails Side Rails x2, Bed position Low and Locked. Fall Precautions: Yellow Socks Yellow Gown Door Sign Patient Fall Education Report given to Albaro KLEIN
[2020-05-26 07:56] LABS: EOSINOPHILS % (AUTO) 0.1 % (0.0-3.0); HEMATOCRIT 36.1 % (42.0-52.0); HEMOGLOBIN 12.3 G/DL (14.2-18.0); LYMPHOCYTES % (AUTO) 17.1 % (20.0-45.0); MEAN CORPUSCULAR VOLUME 76 FL (80-99); MONOCYTES % (AUTO) 13.3 % (1.0-10.0); NEUTROPHILS % (AUTO) 68.6 % (45.0-75.0); PLATELET COUNT 340 K/UL (150-450); RED BLOOD COUNT 4.72 M/UL (4.70-6.10); RED CELL DISTRIBUTION WIDTH 15.2 % (11.6-14.8); WHITE BLOOD COUNT 7.5 K/UL (4.8-10.8)
[2020-05-26 08:00] VITALS: BP 136/93
--- NOTE | 2020-05-26 08:23 | NUR ---
NURSE NOTES: received report from ERNIE Solo. patient in bed. alert to name. disoriented. limited verbal communication d/t impaired cognition. no respiratory distress on 2L via NC. low heart rate. notified SANTOSH Ventura. no new order. continue to monitor. IV on RFA intact. running 1/2NS @60. seizure precaution, side rails are padded. old trach site noted. condom cath draining. bed in the lowest position and locked. call light within reach. alarm on. contact and droplet precaution d/t +COVID. will continue to provide plan of care.
--- NOTE | 2020-05-26 09:32 | Pulmonology Progress Note ---
Subjective ROS Limited/Unobtainable: Yes - l Interval Events: none major Constitutional: Denies: fever HEENT: Repors: no symptoms Respiratory: Reports: no symptoms Cardiovascular: Reports: no symptoms Gastrointestinal/Abdominal: Reports: no symptoms Genitourinary: Reports: no symptoms Allergies: Coded Allergies: No Known Allergies (Unverified , 12/03/14) Objective Last 24 Hour Vital Signs Date Time Temp Pulse Resp B/P (MAP) Pulse Ox O2 Delivery O2 Flow Rate FiO2 05/26/20 08:00 97.8 60 20 136/93 (107) 95 05/26/20 03:57 98.4 49 20 135/77 (96) 94 05/26/20 00:00 98.1 50 18 130/74 (92) 94 05/25/20 21:00 Nasal Cannula 2.0 05/25/20 20:00 98.3 55 20 144/79 (100) 94 05/25/20 16:00 98.1 68 18 140/82 (101) 95 05/25/20 12:00 98.2 55 20 132/79 (96) 95 Intake and Output 05/25/20 05/26/20 19:00 07:00 Intake Total 1380 ml 960 ml Output Total 800 ml 600 ml Balance 580 ml 360 ml Intake Oral 720 ml 240 ml IV Total 660 ml 720 ml Output Urine Total 800 ml 600 ml # Voids 2 1 # Bowel Movements 1 Objective 05/26/2020 less agitation; bradycardic at 49 bpm in AM; now 60 bpm; not on beta- blockers 05/25/2020 repetitive motions of distal upper arms, agitation 05/24/2020 agitated 05/23/2020 alert; disorganized speech General Appearance: no acute distress HEENT: normocephalic Respiratory: chest wall non-tender, decreased breath sounds Cardiovascular: normal peripheral pulses, normal rate Abdomen: normal bowel sounds Genitourinary: other - condom cath Extremities: no cyanosis, no edema Neurologic: other - tremor Laboratory Tests 05/25/20 11:55: D-Dimer 0.97H 05/26/20 03:00: White Blood Count 7.5, Red Blood Count 4.72, Hemoglobin 12.3L, Hematocrit 36.1L, Mean Corpuscular Volume 76L, Mean Corpuscular Hemoglobin 26.1L, Mean Corpuscular Hemoglobin Concent 34.1, Red Cell Distribution Width 15.2H, Platelet Count 340, Mean Platelet Volume 6.2L, Neutrophils (%) (Auto) 68.6, Lymphocytes (%) (Auto) 17.1L, Monocytes (%) (Auto) 13.3H, Eosinophils (%) (Auto) 0.1, Basophils (%) (Auto) 1.0, Lipase 1182H Current Medications Medications (Trade) Dose Ordered Sig/Jeramy Route PRN Reason Start Time Stop Time Status Last Admin Dose Admin Acetaminophen (Tylenol) 650 mg Q4H PRN ORAL pain 05/21/20 09:30 06/20/20 09:29 Dexamethasone (Decadron) 6 mg DAILY ORAL 05/21/20 12:15 05/30/20 09:01 05/26/20 09:21 Haloperidol Lactate (Haldol) 5 mg Q6H PRN IM Agitation 05/22/20 21:00 07/06/20 20:59 Quetiapine Fumarate (SEROqueL) 50 mg EVERY 8 HOURS ORAL 05/22/20 22:00 07/06/20 21:59 05/26/20 05:17 Sodium Chloride 1,000 ml @ 60 mls/hr [id number] IV 05/21/20 09:30 06/20/20 09:29 05/26/20 05:17 Assessment/Plan Assessment/Plan 1. COVID-19 pneumonia. - 05/20/2020 CXR No acute process - 05/24/2020 CXR decreased lung volumes likely secondary to suboptimal inspiration - s/p ceftriaxone, cont dexamethasone per ID - defer use of remdesivir to ID - if remains stable, dc per ID 2. Borderline hypoxemia. - improvin% on 2 lpm NC 3. Seizure disorder. 4. care home resident. 5. Psych disorder. - on Quetiapine 6. DVT ppx - on SCD - 05/25/2020 tachycardic at 112 bpm: D-dimer decreasing The care for this patient was discussed with my supervising physician The history of Stevie Dhillon has been reviewed and management options for him have been examined and discussed by Edmundo Barajas. I have personally examined and interviewed the patient. Time spent for this case was approximately 31 minutes Sudeep Ventura May 26, 2020 09:32 Edmundo Barajas MD May 26, 2020 17:32
--- NOTE | 2020-05-26 11:50 | NUR ---
NURSE NOTES: Dr.Masoud Levin cleared patient for discharge. no antibiotic needed upon discharge. discharge with oxygen 2L via NC. order noted and carried out.
[2020-05-26 12:00] VITALS: BP 138/89
--- NOTE | 2020-05-26 12:13 | Infectious Diseases Prog Note ---
Assessment/Plan Assessment/Plan IMPRESSION: COVID19 disease, CXR: negative Borderline hypoxemia. Pancreatitis, COPD, Hyperlipidemia, Thrombocytopenia. RECOMMENDATIONS: Discontinue dexamethasone. Agree with discharge to SNF Subjective ROS Limited/Unobtainable: Yes Constitutional: Denies: fever Allergies: Coded Allergies: No Known Allergies (Unverified , 12/03/14) Objective Last 24 Hour Vital Signs Date Time Temp Pulse Resp B/P (MAP) Pulse Ox O2 Delivery O2 Flow Rate FiO2 05/26/20 12:00 98.0 65 20 138/89 (105) 95 05/26/20 09:00 Nasal Cannula 2.0 05/26/20 08:00 97.8 60 20 136/93 (107) 95 05/26/20 03:57 98.4 49 20 135/77 (96) 94 05/26/20 00:00 98.1 50 18 130/74 (92) 94 05/25/20 21:00 Nasal Cannula 2.0 05/25/20 20:00 98.3 55 20 144/79 (100) 94 05/25/20 16:00 98.1 68 18 140/82 (101) 95 Height (Feet): 5 Height (Inches): 10.00 Weight (Pounds): 201 General Appearance: no acute distress HEENT: mucous membranes moist Respiratory/Chest: lungs clear Cardiovascular: normal rate Abdomen: soft, non tender Extremities: no edema Neurologic/Psychiatric: alert, responsive Laboratory Tests Test 05/26/20 03:00 White Blood Count 7.5 K/UL (4.8-10.8) Red Blood Count 4.72 M/UL (4.70-6.10) Hemoglobin 12.3 G/DL (14.2-18.0) L Hematocrit 36.1 % (42.0-52.0) L Mean Corpuscular Volume 76 FL (80-99) L Mean Corpuscular Hemoglobin 26.1 PG (27.0-31.0) L Mean Corpuscular Hemoglobin Concent 34.1 G/DL (32.0-36.0) Red Cell Distribution Width 15.2 % (11.6-14.8) H Platelet Count 340 K/UL (150-450) Mean Platelet Volume 6.2 FL (6.5-10.1) L Neutrophils (%) (Auto) 68.6 % (45.0-75.0) Lymphocytes (%) (Auto) 17.1 % (20.0-45.0) L Monocytes (%) (Auto) 13.3 % (1.0-10.0) H Eosinophils (%) (Auto) 0.1 % (0.0-3.0) Basophils (%) (Auto) 1.0 % (0.0-2.0) Lipase 1182 U/L (73-393) H Current Medications Medications (Trade) Dose Ordered Sig/Jeramy Route PRN Reason Start Time Stop Time Status Last Admin Dose Admin Acetaminophen (Tylenol) 650 mg Q4H PRN ORAL pain 05/21/20 09:30 06/20/20 09:29 Dexamethasone (Decadron) 6 mg DAILY ORAL 05/21/20 12:15 05/30/20 09:01 05/26/20 09:21 Haloperidol Lactate (Haldol) 5 mg Q6H PRN IM Agitation 05/22/20 21:00 07/06/20 20:59 Quetiapine Fumarate (SEROqueL) 50 mg EVERY 8 HOURS ORAL 05/22/20 22:00 07/06/20 21:59 05/26/20 05:17 Sodium Chloride 1,000 ml @ 60 mls/hr [id number] IV 05/21/20 09:30 06/20/20 09:29 05/26/20 05:17 Pankaj Herrera MD May 26, 2020 12:13
--- NOTE | 2020-05-26 13:30 | NUR ---
*-*DISCHARGE PLANNED*-* PATIENT HAS BEEN ACCEPTED AND WILL BE DISCHARGED BACK TO: [facility] P:[phone] FOR NURSE TO NURSE REPORT ROOM#B [facility] TRANSPORTATION SET FOR 2:45PM S/W JOCELYNE [id number] WILL CALL CALL "CALL THE CAR" TRANSPORTATION FOR ETA
--- NOTE | 2020-05-26 13:33 | NUR ---
*-*DISCHARGE PLANNED*-* PATIENT HAS BEEN ACCEPTED AND WILL BE DISCHARGED BACK TO: [facility] P:[phone] FOR NURSE TO NURSE REPORT ROOM#A [facility] TRANSPORTATION SET FOR 2:45PM S/W JOCELYNE [id number] WILL CALL CALL "CALL THE CAR" TRANSPORTATION FOR ETA
--- NOTE | 2020-05-26 14:21 | NUR ---
NURSE NOTES: given report to [facility]. spoke to ERNIE Youssef. left message on voice mail of Katlin Dhillon/Daughter.
[2020-05-26 16:00] VITALS: BP 140/75
--- NOTE | 2020-05-26 17:40 | NUR ---
NURSE NOTES: patient was discharged to [facility] via ambulance [facility]. stable. alert to name. no respiratory distress on 2Lvia NC. no pain at this time. given DC packet to ambulance personnel.checked and counted belongings. removed IV and ID band. vs stable. no skin issues.
--- NOTE | 2020-05-27 15:54 | NUR ---
INSURANCE CLINICALS/DC INSTRUCTIONS FAXED TO [facility] [phone]
--- NOTE | 2020-05-28 12:55 | Discharge Summary ---
Discharge Summary Discharge Summary _ DATE OF ADMISSION: 05/21/2020 DATE OF DISCHARGE: 05/26/2020 Dr. Phillisp DISCHARGED BY: Dr. Lam REASON FOR ADMISSION: [] 59 years old male, resident of senior care facility, with past medical history of hypertension, COPD/asthma, history of traumatic brain injury, seizure disorder, schizophrenia, presented for evaluation due to respiratory distress. Patient apparently noted to be have a fever up to 103. Patient had prior history of tracheostomy status post stoma closure. 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 Upon evaluation vital signs were stable pulse oximetry was 92% in the room air. Laboratory work-up revealed WBC 3.8, hemoglobin 12.5 hematocrit 30.1 platelet count 108. Stable electrolytes and renal parameters. Glucose 130. Lactic acid 1.1. Ferritin 1089, LDH 318, CRP 11.4 D-dimer 1.09. Rapid COVID-19 in emergency department was positive. Chest x-ray revealed no acute process. In emergency department patient received Decadron, empiric antibiotics and admitted to isolation room to medical surgical floor for further management CONSULTANTS: pulmonary Dr. Barajas ID specialist Dr. Pankaj Herrera psychiatrist [facility]: [] Patient admitted to medical surgical floor to isolation room. Patient continue on steroids. Pulse oximetry was closely monitored with supplemental oxygen titrated to keep pulse oximetry above 92% patient remained on oxygen low- flow oxygen 2 L via nasal cannula with a stable respiratory status. No fevers blood cultures were negative. Urine culture were negative. Patient was on the steroids we discontinued prior to discharge. Follow-up chest x-ray revealed decreased lung volumes likely secondary to suboptimal inspiration. Patient completed treatment of ceftriaxone and steroids while in the hospital. No need for remdesivir about this patient. Seizure precaution maintain collected continued no evidence of seizure activity while in the hospital SCD provided D- dimer decreasing psychiatry seen and evaluated patient Psychiatrist followed. Current psychiatric medications were continued. FINAL DIAGNOSES: COVID-19 pneumonia Borderline hypoxemia COPD Thrombocytopenia Acute toxic encephalopathy Seizure disorder DISCHARGE MEDICATIONS: See Medication Reconciliation list. DISCHARGE INSTRUCTIONS: Patient was discharged to the senior care facility. Follow up with medical doctor at the facility. I have been assigned to dictate discharge summary for this account. I was not involved in the patient's management. Valeri Thornton NP May 28, 2020 12:55
--- NOTE | 2020-05-28 15:32 | NUR ---
INSURANCE DC SUMMARY FAXED TO [facility] [phone]
== END 2020-05-26 18:11 | DRG 720 ==
LOC: EDBD 23:39 → EMR 23:54 → 2E 05-21 02:38 → EDBEDREQ 05-21 08:36 → 2E 05-21 08:56 → 4E 05-23 10:50
DX: A41.89 Other specified sepsis (principal); U07.1 COVID-19; J12.89 Other viral pneumonia; R09.02 Hypoxemia; K85.90 Acute pancreatitis without necrosis or infection, unspecified; J44.9 Chronic obstructive pulmonary disease, unspecified; Z87.820 Personal history of traumatic brain injury; I10 Essential (primary) hypertension; F20.9 Schizophrenia, unspecified; G92 Toxic encephalopathy; D69.6 Thrombocytopenia, unspecified; G40.909 Epilepsy, unspecified, not intractable, without status epilepticus
CPT/HCPCS: 36415; 71045; 80053; 80164; 81003; 82550; 82553; 82728; 82803; 83605; 83615; 83690; 83880; 84484; 85025; 85379; 85610; 85730; 86140; 87040; 87081; 87086; 93005; 96361; 96365; 96367; 96375; 99285; J7030; U0002